=== PATIENT | female | born 1950 | race Caucasian/White ===

== ENCOUNTER 2016-10-26 07:04 | Emergency (ER) | payer MEDICARE ==
[~2016-10-26] VITALS: Ht 152.4 cm; Wt 56.8 kg
[~2016-10-26 07:04] MED LIST: ASPIR-LOW81 MG PO; LISINOPRIL/HCTZ1 TA1 PO; NITROSTAT0.4 MG SL; NORVASC2.5 MG PO
[2016-10-26 07:05] VITALS: PULSE 77; TEMP 97.8
[2016-10-26] MEDS ORDERED: ASPIRIN E.C. 8181 MG PO (07:24)
[2016-10-26] MEDS ORDERED: AVAPRO75 MG PO (07:24)
[2016-10-26 08:55] VITALS: BP 252/120
[2016-10-26] MEDS ORDERED: ATIVAN 0.50.5 MG/TAB PO (08:56)
== END 2016-10-26 09:30 | disposition home or self-care (01) ==
LOC: COL.ER 07:04
DX: I16.1 Hypertensive emergency (principal); S46.811A Strain of other muscles, fascia and tendons at shoulder and upper arm level, right arm, initial encounter; W19.XXXA Unspecified fall, initial encounter; Y92.007 Garden or yard of unspecified non-institutional (private) residence as the place of occurrence of the external cause; Z53.21 Procedure and treatment not carried out due to patient leaving prior to being seen by health care provider; F41.9 Anxiety disorder, unspecified; Z86.73 Personal history of transient ischemic attack (TIA), and cerebral infarction without residual deficits; T46.5X6A Underdosing of other antihypertensive drugs, initial encounter; Z91.128 Patient's intentional underdosing of medication regimen for other reason

== ENCOUNTER 2016-11-06 16:28 | Inpatient (IN) | payer MEDICARE, OTHER ==
[2016-11-06] VITALS (291 sets, daily range): BP systolic 170; BP diastolic 94; PULSE 62; TEMP 98.1; O2SAT 90–100
[~2016-11-06] VITALS: Ht 152.4 cm; Wt 56.2 kg
[~2016-11-06 16:28] MED LIST changes: +ASPIRIN E.C. 8181 MG PO; +ATIVAN 0.50.5 MG/TAB PO; +AVAPRO75 MG PO
[2016-11-06] MEDS ORDERED: ISOPTIN SR240 MG PO (16:53)
[2016-11-06 17:11] LABS: BASO # 0.1 (0.0-0.2); BASO % 0.5 % (0.0-2.0); EOS # 0.4 (0.0-0.7); EOS % 3.2 % (0-4.0); GRAN # 7.7 (1.4-6.5); GRAN % 69.3 % (42.2-75.2); HEMOGLOBIN 12.2 g/dl (12.5-16.0); LYMPH # 2.4 (1.2-3.4); LYMPH % 21.3 % (20.0-51.0); MEAN CELL VOLUME 83 fl (80.0-100.0); MEAN CORPUSCULAR HEMOGLOBIN 28 pg (27.0-31.0); MEAN CORPUSCULAR HGB CONC 34 g/dl (33.0-37.0); MEAN PLATELET VOLUME 10.3 fl (7.4-10.4); MONO # 0.6 (0.1-0.6); MONO % 5.3 % (1.7-9.3); PLATELET COUNT 286 K/mm3 (130-400); RED BLOOD COUNT 4.32 M/mm3 (4.10-5.30); WHITE BLOOD COUNT 11.1 K/mm3 (4.8-10.8)
[2016-11-06 17:23] LABS: ALANINE AMINOTRANSFERASE 15 U/L (9-52); ALBUMIN 4.3 gm/dL (3.5-5.0); ALKALINE PHOSPHATASE 100 U/L (50-136); ANION GAP 13 mmol/L (7-16); BILIRUBIN,TOTAL 0.8 mg/dL (0.0-1.0); BLOOD UREA NITROGEN 40 mg/dL (7-17); C-REACTIVE PROTEIN 0.7 mg/dL (0.0-0.9); CALCIUM 9.2 mg/dL (8.4-10.2); CARBON DIOXIDE 23 mmol/L (22-30); CHLORIDE 105 mmol/L (98-107); CREATININE, serum 3.36 mg/dL (0.52-1.25); GLUCOSE 81 mg/dL (74-106); SODIUM 140 mmol/L (137-145); TOTAL PROTEIN 8.3 gm/dL (6.4-8.2)
[2016-11-06 17:32] LABS: TROPONIN-I < 0.012 ng/mL (0.000-0.034)
[2016-11-06 17:43] LABS: ERYTHROCYTE SEDIMENTATION RATE 55 mm/hr (0-30); HEMATOCRIT 35.7 % (37.0-47.0)
[2016-11-07] VITALS (936 sets, daily range): BP systolic 121–214; BP diastolic 65–109; PULSE 48–66; TEMP 97.1–99.1; O2SAT 83–100
[2016-11-07 02:28] LABS: COLLECTION METHOD CLEAN CATCH
[2016-11-07 02:33] LABS: PH 7 (5-8); SQUAMOUS EPITHELIAL 0-2 /hpf; URINE APPEARANCE Clear; URINE BACTERIA Rare /hpf; URINE BILIRUBIN Negative (NEGATIVE); URINE BLOOD Negative (NEGATIVE); URINE COLOR Colorless; URINE GLUCOSE Negative (NEGATIVE); URINE KETONE Negative (NEGATIVE); URINE LEUKOCYTE ESTERASE Negative (NEGATIVE); URINE PROTEIN(semi-quant) 1+ (NEGATIVE); URINE RBC None Seen /hpf; URINE UROBILINOGEN Negative (NEGATIVE); URINE WBC 0-2 /hpf
[2016-11-07 16:07] LABS: URINE PROTEIN:CREAT RATIO 1.37 (0.00-0.14)
[2016-11-07 17:46] LABS: CREATININE, serum 2.49 mg/dL (0.52-1.25); FRACTIONAL EXCRETION OF NA+ 2.4 %
[2016-11-08] VITALS (11 sets, daily range): BP systolic 143–189; BP diastolic 72–97; PULSE 54–84; TEMP 97.4–98.7
[2016-11-08 09:21] LABS: CALCIUM 8.6 mg/dL (8.4-10.2); CREATININE, serum 2.34 mg/dL (0.52-1.25); MAGNESIUM 2.1 mg/dL (1.6-2.3); POTASSIUM 4.1 mmol/L (3.4-5.0)
[2016-11-08 14:10] LABS: ALBUMIN FRACTION 3.1 g/dL (2.6-4.5); ALPHA 1 FRACTION 0.3 g/dL (0.3-0.5); ALPHA 1 PERCENTAGE 4.4 % (3.4-8.3); ALPHA 2 FRACTION 0.7 g/dL (0.6-1.2); ALPHA 2 PERCENTAGE 11.4 % (8.4-17.5); BETA 1 FRACTION 0.4 g/dL (0.4-0.6); BETA 1 PERCENTAGE 5.9 % (5.4-8.9); BETA 2 FRACTION 0.4 g/dL (0.2-0.5); BETA 2 PERCENTAGE 6.8 % (3.8-7.7); GAMMA FRACTION 1.3 g/dL (0.4-1.7); GAMMA PERCENTAGE 21.5 % (8.1-23.0); SERUM PROTEIN TOTAL 6.2 g/dL (6.0-7.6); URINE ALPHA 1 % 8.2 % (()); URINE ALPHA 2 % 6.3 % (()); URINE BETA % 8.4 % (()); URINE GAMMA % 15.8 % (())
[2016-11-09 00:25] VITALS: BP 139/74; PULSE 55
[2016-11-09 04:10] VITALS: BP 155/60; PULSE 76; TEMP 97.7
[2016-11-09 07:49] VITALS: BP 168/87; PULSE 63; TEMP 98
[2016-11-09 11:49] LABS: KAPPA FREE LIGHT CHAIN-SERUM 14.2 mg/dL (()); KAPPA LAMBDA RATIO 3.44 (())
[2016-11-09 12:44] VITALS: BP 163/71; PULSE 60; TEMP 97.4
[2016-11-09] MEDS ORDERED: ISOPTIN SR180 M1 PO (13:56)
[2016-11-09] MEDS ORDERED: AVAPRO75 MG PO (13:57)
[2016-11-09] MEDS ORDERED: CATAPRES0.2 MG PO (13:58)
[2016-11-09] MEDS ORDERED: COREG 6.256.25 MG/TA PO (14:00)
[2017-02-02] MEDS ORDERED: ASPIRIN 81M81 MG/TA2 PO (17:51)
[2017-02-02] MEDS ORDERED: ULTRAM 50MG TAB50 MG PO (17:54)
== END 2016-11-09 15:20 | disposition home or self-care (01) | DRG 305 ==
LOC: COL.ER 16:28 → ICU 17:54 → MEDICAL 11-07 16:50
PROVIDERS: Emergency Medicine; Family Medicine; Internal Medicine; Internal Medicine Nephrology
DX: I16.0 Hypertensive urgency (principal); N18.4 Chronic kidney disease, stage 4 (severe); N17.9 Acute kidney failure, unspecified; I71.4 Abdominal aortic aneurysm, without rupture; I12.9 Hypertensive chronic kidney disease with stage 1 through stage 4 chronic kidney disease, or unspecified chronic kidney disease; Z91.14 Patient's other noncompliance with medication regimen
CPT/HCPCS: 99223-AI; 99233-AI; J1200; J1644; J7030; J7050

== ENCOUNTER 2017-02-06 15:19 | Inpatient (IN) | payer MEDICARE ==
[~2017-02-06] VITALS: Ht 152.4 cm; Wt 54.8 kg
[~2017-02-06 15:19] MED LIST changes: +ASPIRIN 81M81 MG/TA2 PO; +CATAPRES0.2 MG PO; +COREG 6.256.25 MG/TA PO; +ISOPTIN SR180 M1 PO; +ISOPTIN SR240 MG PO; +ULTRAM 50MG TAB50 MG PO
[2017-02-06 18:42] VITALS: BP 165/74; PULSE 50; TEMP 97.3
[2017-02-07] MEDS ORDERED: COREG 25MG25 MG/TAB PO (02:38)
[2017-02-07] MEDS ORDERED: ALDACTONE 25MG25 M1 PO (02:39)
[2017-02-07] MEDS ORDERED: HEPARIN SOD5000 U/ML SQ (02:45)
[2017-02-07] MEDS ORDERED: HCTZ 25MG TAB25 MG (02:46)
[2017-02-07] MEDS ORDERED: HCTZ 25MG TAB25 MG PO (02:47)
[2017-02-07] MEDS ORDERED: MAG-OX 400400 MG/TAB PO (02:49)
[2017-02-07] MEDS ORDERED: NORVASC 5MG5 MG/TAB PO (02:52)
[2017-02-07] MEDS ORDERED: HEPARIN LOCK F1 U/ML IV (02:54)
[2017-02-07] MEDS ORDERED: PROTONIX 40MG T40 MG PO (02:55)
[2017-02-07] MEDS ORDERED: APRESOLINE 220 MG/ML IV (02:58)
[2017-02-07] MEDS ORDERED: MORP4 IV (03:13)
[2017-02-07 06:51] VITALS: BP 180/76; PULSE 58; TEMP 98.4
[2017-02-07 16:10] VITALS: BP 139/70; PULSE 52; TEMP 97.7
[2017-02-08 05:16] VITALS: BP 158/74; PULSE 48; TEMP 97.5
[2017-02-08 05:44] LABS: CALCIUM 9.2 mg/dL (8.4-10.2); CREATININE, serum 3.62 mg/dL (0.52-1.25); POTASSIUM 4.7 mmol/L (3.4-5.0)
[2017-02-08 16:59] VITALS: BP 137/63; PULSE 50; TEMP 98.2
[2017-02-09 06:01] VITALS: BP 174/75; PULSE 52; TEMP 98.2
[2017-02-09 07:10] LABS: CALCIUM 9.4 mg/dL (8.4-10.2); CREATININE, serum 3.81 mg/dL (0.52-1.25); POTASSIUM 4.4 mmol/L (3.4-5.0)
[2017-02-09 16:51] VITALS: BP 149/83; PULSE 60; TEMP 98.3
[2017-02-10 05:30] VITALS: BP 174/78; PULSE 56; TEMP 98.6
[2017-02-10 07:09] LABS: CALCIUM 9.5 mg/dL (8.4-10.2); CREATININE, serum 3.67 mg/dL (0.52-1.25); MAGNESIUM 2.7 mg/dL (1.6-2.3); POTASSIUM 4.7 mmol/L (3.4-5.0)
[2017-02-10 16:05] VITALS: BP 156/80; PULSE 64; TEMP 98.3
[2017-02-11 05:18] VITALS: BP 135/68; PULSE 71; TEMP 97.6
[2017-02-11 11:27] VITALS: BP 168/92
[2017-02-11 16:16] VITALS: BP 160/81; PULSE 72; TEMP 98
[2017-02-12 03:12] VITALS: BP 134/78; PULSE 86; TEMP 98.4
[2017-02-12 07:40] LABS: CALCIUM 9.5 mg/dL (8.4-10.2); MAGNESIUM 2.6 mg/dL (1.6-2.3); POTASSIUM 4.4 mmol/L (3.4-5.0)
[2017-02-12 07:42] LABS: CREATININE, serum 3.94 mg/dL (0.52-1.25)
[2017-02-12 12:08] VITALS: BP 136/75; PULSE 81
[2017-02-12 17:12] VITALS: BP 164/76; PULSE 82; TEMP 97.6
[2017-02-13 05:22] VITALS: BP 170/81; PULSE 74; TEMP 98.3
[2017-02-13 17:00] VITALS: BP 154/79; PULSE 90; TEMP 98.1
[2017-02-14 04:49] VITALS: BP 131/64; PULSE 73; TEMP 97.7
[2017-02-14] MEDS ORDERED: MINOXIDIL 2.5 PO (11:29)
[2017-02-14] MEDS ORDERED: ZESTRIL 5MG5 MG PO (11:29)
[2017-02-14] MEDS ORDERED: APRESOLINE 10MG10 MG PO (11:30)
[2017-02-14] MEDS ORDERED: TYLENOL 325MG325 MG PO (11:31)
[2017-02-14 18:53] VITALS: BP 154/74; PULSE 82; TEMP 98.3
== END 2017-02-14 20:30 | disposition home or self-care (01) | DRG 948 ==
PROVIDERS: Internal Medicine
DX: R53.81 Other malaise (principal); N18.4 Chronic kidney disease, stage 4 (severe); N17.9 Acute kidney failure, unspecified; I16.0 Hypertensive urgency; I12.9 Hypertensive chronic kidney disease with stage 1 through stage 4 chronic kidney disease, or unspecified chronic kidney disease; E87.6 Hypokalemia; Z87.891 Personal history of nicotine dependence; S83.206D Unspecified tear of unspecified meniscus, current injury, right knee, subsequent encounter
CPT/HCPCS: 99222-AI; 99232-AI; 99233-AI; 99239; J1644; J2405

== ENCOUNTER 2018-03-07 18:39 | Inpatient (IN) | payer MEDICARE ==
[~2018-03-07] VITALS: Ht 152.4 cm; Wt 49.1 kg
[2018-03-07] VITALS (71 sets, daily range): BP systolic 139–201; BP diastolic 77–100; PULSE 72–78; TEMP 98.4; O2SAT 91–100
[~2018-03-07 18:39] MED LIST changes: +ALDACTONE 25MG25 M1 PO; +APRESOLINE 10MG10 MG PO; +APRESOLINE 220 MG/ML IV; +COREG 25MG25 MG/TAB PO; +HCTZ 25MG TAB25 MG; +HCTZ 25MG TAB25 MG PO; +HEPARIN LOCK F1 U/ML IV; +HEPARIN SOD5000 U/ML SQ; +MAG-OX 400400 MG/TAB PO; +MINOXIDIL 2.5 PO; +MORP4 IV; +NORVASC 5MG5 MG/TAB PO; +PROTONIX 40MG T40 MG PO; +TYLENOL 325MG325 MG PO; +ZESTRIL 5MG5 MG PO
[2018-03-07 23:33] LABS: COLLECTION METHOD CLEAN CATCH
[2018-03-07 23:37] LABS: PH 6 (5-8); SQUAMOUS EPITHELIAL None Seen /hpf; URINE APPEARANCE Clear; URINE BACTERIA None Seen /hpf; URINE BILIRUBIN Negative (NEGATIVE); URINE BLOOD Negative (NEGATIVE); URINE COLOR Yellow; URINE GLUCOSE Negative (NEGATIVE); URINE KETONE Negative (NEGATIVE); URINE LEUKOCYTE ESTERASE Negative (NEGATIVE); URINE NITRATE Negative (NEGATIVE); URINE PROTEIN(semi-quant) 3+ (NEGATIVE); URINE RBC 0-2 /hpf; URINE UROBILINOGEN Negative (NEGATIVE)
[2018-03-08] VITALS (690 sets, daily range): BP systolic 156–218; BP diastolic 91–129; PULSE 60–86; TEMP 97.6–98.2; O2SAT 89–100
[2018-03-08 01:14] LABS: TROPONIN-I < 0.012 ng/mL (0.000-0.034)
[2018-03-08 01:57] LABS: ANION GAP 7 mmol/L (7-16); BLOOD UREA NITROGEN 55 mg/dL (7-17); CALCIUM 8.6 mg/dL (8.4-10.2); CARBON DIOXIDE 22 mmol/L (22-30); CHLORIDE 116 mmol/L (98-107); GLUCOSE 92 mg/dL (74-106); MAGNESIUM 2.1 mg/dL (1.6-2.3); SODIUM 145 mmol/L (137-145)
[2018-03-08 06:02] LABS: BASO % 0.4 % (0.0-2.0); EOS # 0.3 (0.0-0.7); EOS % 3.8 % (0-4.0); GRAN # 5.3 (1.4-6.5); GRAN % 65.4 % (42.2-75.2); LYMPH # 1.9 (1.2-3.4); LYMPH % 23.9 % (20.0-51.0); MEAN CELL VOLUME 85 fl (80.0-100.0); MEAN CORPUSCULAR HGB CONC 33 g/dl (33.0-37.0); MEAN PLATELET VOLUME 10.7 fl (7.4-10.4); MONO # 0.5 (0.1-0.6); MONO % 6.1 % (1.7-9.3); PLATELET COUNT 197 K/mm3 (130-400); RED BLOOD COUNT 3.23 M/mm3 (4.10-5.30); REDCELL DISTRIBUTION WIDTH-CV 13.2 % (11.5-14.5)
[2018-03-08 06:10] LABS: HEMATOCRIT 27.5 % (37.0-47.0); HEMOGLOBIN 9.1 g/dl (12.5-16.0); MEAN CORPUSCULAR HEMOGLOBIN 28 pg (27.0-31.0)
[2018-03-08 06:11] LABS: ANION GAP 7 mmol/L (7-16); BLOOD UREA NITROGEN 53 mg/dL (7-17); CALCIUM 8.2 mg/dL (8.4-10.2); CARBON DIOXIDE 21 mmol/L (22-30); CHLORIDE 115 mmol/L (98-107); GLUCOSE 90 mg/dL (74-106); POTASSIUM 3.8 mmol/L (3.4-5.0); SODIUM 143 mmol/L (137-145)
[2018-03-08 06:28] LABS: TROPONIN-I < 0.012 ng/mL (0.000-0.034)
[2018-03-08 06:29] LABS: CREATININE, serum 4.48 mg/dL (0.52-1.25)
[2018-03-09] VITALS (573 sets, daily range): BP systolic 137–169; BP diastolic 78–97; PULSE 61–74; TEMP 97.8–98.5; O2SAT 73–100
[2018-03-09 05:53] LABS: BASO % 0.3 % (0.0-2.0); EOS # 0.5 (0.0-0.7); EOS % 4.1 % (0-4.0); GRAN # 9.1 (1.4-6.5); GRAN % 75.1 % (42.2-75.2); HEMOGLOBIN 10.1 g/dl (12.5-16.0); LYMPH # 1.7 (1.2-3.4); LYMPH % 14.1 % (20.0-51.0); MEAN CELL VOLUME 83 fl (80.0-100.0); MEAN CORPUSCULAR HEMOGLOBIN 29 pg (27.0-31.0); MEAN CORPUSCULAR HGB CONC 34 g/dl (33.0-37.0); MEAN PLATELET VOLUME 11.1 fl (7.4-10.4); MONO # 0.7 (0.1-0.6); MONO % 6.1 % (1.7-9.3); PLATELET COUNT 209 K/mm3 (130-400); RED BLOOD COUNT 3.55 M/mm3 (4.10-5.30)
[2018-03-09 05:54] LABS: HEMATOCRIT 29.5 % (37.0-47.0)
[2018-03-09 06:02] LABS: CALCIUM 8.5 mg/dL (8.4-10.2)
[2018-03-09 06:13] LABS: CREATININE, serum 4.73 mg/dL (0.52-1.25)
[2018-03-09 17:48] LABS: CREATININE, serum 4.73 mg/dL (0.52-1.25); URINE TOTAL VOLUME 1175 mL
[2018-03-09 18:04] LABS: URINE CREATININE CLEARANCE 12.6 mL/min (88-128)
[2018-03-10] VITALS (8 sets, daily range): BP systolic 146–190; BP diastolic 75–93; PULSE 54–69; TEMP 97.5–98.3
[2018-03-10 08:42] LABS: BASO % 0.3 % (0.0-2.0); EOS # 0.5 (0.0-0.7); EOS % 4.1 % (0-4.0); GRAN # 8.6 (1.4-6.5); GRAN % 76.8 % (42.2-75.2); HEMOGLOBIN 10.7 g/dl (12.5-16.0); LYMPH # 1.6 (1.2-3.4); LYMPH % 13.9 % (20.0-51.0); MEAN CELL VOLUME 84 fl (80.0-100.0); MEAN CORPUSCULAR HEMOGLOBIN 28 pg (27.0-31.0); MEAN CORPUSCULAR HGB CONC 34 g/dl (33.0-37.0); MEAN PLATELET VOLUME 11.1 fl (7.4-10.4); MONO # 0.5 (0.1-0.6); MONO % 4.5 % (1.7-9.3); PLATELET COUNT 219 K/mm3 (130-400); RED BLOOD COUNT 3.77 M/mm3 (4.10-5.30); REDCELL DISTRIBUTION WIDTH-CV 13.2 % (11.5-14.5)
[2018-03-10 08:47] LABS: HEMATOCRIT 31.6 % (37.0-47.0)
[2018-03-10 08:58] LABS: CALCIUM 8.8 mg/dL (8.4-10.2); POTASSIUM 3.8 mmol/L (3.4-5.0)
[2018-03-10 09:10] LABS: CREATININE, serum 4.63 mg/dL (0.52-1.25)
[2018-03-11 04:45] VITALS: BP 172/75; PULSE 58; TEMP 97.5
[2018-03-11 06:14] LABS: BASO % 0.4 % (0.0-2.0); EOS # 0.4 (0.0-0.7); EOS % 3.9 % (0-4.0); GRAN % 66.7 % (42.2-75.2); LYMPH # 1.9 (1.2-3.4); LYMPH % 21.6 % (20.0-51.0); MEAN CELL VOLUME 86 fl (80.0-100.0); MEAN CORPUSCULAR HGB CONC 33 g/dl (33.0-37.0); MEAN PLATELET VOLUME 11.4 fl (7.4-10.4); MONO # 0.6 (0.1-0.6); MONO % 7.1 % (1.7-9.3); PLATELET COUNT 218 K/mm3 (130-400); RED BLOOD COUNT 3.44 M/mm3 (4.10-5.30); REDCELL DISTRIBUTION WIDTH-CV 13.3 % (11.5-14.5)
[2018-03-11 06:17] LABS: HEMATOCRIT 29.4 % (37.0-47.0); HEMOGLOBIN 9.8 g/dl (12.5-16.0); MEAN CORPUSCULAR HEMOGLOBIN 28 pg (27.0-31.0)
[2018-03-11 06:28] LABS: CALCIUM 8.8 mg/dL (8.4-10.2); POTASSIUM 3.8 mmol/L (3.4-5.0)
[2018-03-11 06:58] LABS: CREATININE, serum 4.84 mg/dL (0.52-1.25)
[2018-03-11 07:34] VITALS: BP 204/91; PULSE 63; TEMP 97.6
[2018-03-11 10:10] VITALS: BP 155/64; PULSE 88; TEMP 98
[2018-03-11 11:32] VITALS: BP 151/77; PULSE 55; TEMP 97.9
[2018-03-11 16:36] VITALS: BP 183/75; PULSE 65; TEMP 98.3
[2018-03-11 16:53] LABS: KAPPA FREE LIGHT CHAIN-URINE 8.91 mg/dL (<0.9000); LAMBDA FREE LIGHT CHAIN-URINE 3.15 mg/dL (<0.7000)
[2018-03-11 21:05] VITALS: BP 162/89; PULSE 59; TEMP 97.5
[2018-03-11 21:42] LABS: KAPPA FREE LIGHT CHAIN-SERUM 14.7 mg/dL (()); LAMDA FREE LIGHT CHAIN SERUM 6.15 mg/dL (())
[2018-03-12 04:29] VITALS: BP 207/94; PULSE 62; TEMP 97.8
[2018-03-12 06:11] LABS: BASO % 0.4 % (0.0-2.0); EOS # 0.3 (0.0-0.7); EOS % 3.5 % (0-4.0); GRAN # 6.5 (1.4-6.5); GRAN % 71.7 % (42.2-75.2); HEMOGLOBIN 9.8 g/dl (12.5-16.0); LYMPH # 1.5 (1.2-3.4); LYMPH % 16.5 % (20.0-51.0); MEAN CELL VOLUME 86 fl (80.0-100.0); MEAN CORPUSCULAR HEMOGLOBIN 28 pg (27.0-31.0); MEAN CORPUSCULAR HGB CONC 33 g/dl (33.0-37.0); MEAN PLATELET VOLUME 11.4 fl (7.4-10.4); MONO # 0.7 (0.1-0.6); MONO % 7.6 % (1.7-9.3); PLATELET COUNT 220 K/mm3 (130-400); RED BLOOD COUNT 3.45 M/mm3 (4.10-5.30); REDCELL DISTRIBUTION WIDTH-CV 13.8 % (11.5-14.5)
[2018-03-12 06:12] LABS: HEMATOCRIT 29.7 % (37.0-47.0)
[2018-03-12 06:37] LABS: CALCIUM 8.7 mg/dL (8.4-10.2)
[2018-03-12 06:42] LABS: CREATININE, serum 5.9 mg/dL (0.52-1.25)
[2018-03-12 07:47] VITALS: BP 187/85; PULSE 63; TEMP 98.3
[2018-03-12 11:11] VITALS: BP 172/89; PULSE 32; TEMP 98.2
[2018-03-12 16:00] VITALS: BP 167/71; PULSE 61; TEMP 97.9
[2018-03-12 19:36] VITALS: BP 163/70; PULSE 58; TEMP 97
[2018-03-13] VITALS (13 sets, daily range): BP systolic 125–215; BP diastolic 51–95; PULSE 58–69; TEMP 97.4–98.2
[2018-03-13 06:10] LABS: BASO # 0.1 (0.0-0.2); BASO % 0.5 % (0.0-2.0); EOS # 0.3 (0.0-0.7); EOS % 3.3 % (0-4.0); GRAN # 7.3 (1.4-6.5); GRAN % 73.7 % (42.2-75.2); LYMPH # 1.6 (1.2-3.4); LYMPH % 15.8 % (20.0-51.0); MEAN CELL VOLUME 86 fl (80.0-100.0); MEAN CORPUSCULAR HGB CONC 33 g/dl (33.0-37.0); MEAN PLATELET VOLUME 11.1 fl (7.4-10.4); MONO # 0.6 (0.1-0.6); MONO % 6.5 % (1.7-9.3); PLATELET COUNT 238 K/mm3 (130-400); RED BLOOD COUNT 3.52 M/mm3 (4.10-5.30)
[2018-03-13 06:15] LABS: HEMATOCRIT 30.4 % (37.0-47.0); HEMOGLOBIN 9.9 g/dl (12.5-16.0); MEAN CORPUSCULAR HEMOGLOBIN 28 pg (27.0-31.0)
[2018-03-13 06:16] LABS: CALCIUM 8.6 mg/dL (8.4-10.2); POTASSIUM 3.9 mmol/L (3.4-5.0)
[2018-03-13 06:41] LABS: CREATININE, serum 5.45 mg/dL (0.52-1.25)
[2018-03-14] VITALS (8 sets, daily range): BP systolic 138–215; BP diastolic 63–93; PULSE 60–72; TEMP 97.8–98.4
[2018-03-14 07:53] LABS: BASO % 0.4 % (0.0-2.0); EOS # 0.2 (0.0-0.7); EOS % 1.5 % (0-4.0); GRAN # 8.5 (1.4-6.5); GRAN % 81.5 % (42.2-75.2); HEMOGLOBIN 10.3 g/dl (12.5-16.0); LYMPH # 1.1 (1.2-3.4); LYMPH % 10.6 % (20.0-51.0); MEAN CELL VOLUME 86 fl (80.0-100.0); MEAN CORPUSCULAR HEMOGLOBIN 29 pg (27.0-31.0); MEAN CORPUSCULAR HGB CONC 33 g/dl (33.0-37.0); MEAN PLATELET VOLUME 11.3 fl (7.4-10.4); MONO # 0.6 (0.1-0.6); MONO % 5.6 % (1.7-9.3); PLATELET COUNT 231 K/mm3 (130-400); RED BLOOD COUNT 3.62 M/mm3 (4.10-5.30)
[2018-03-14 07:58] LABS: HEMATOCRIT 31.2 % (37.0-47.0)
[2018-03-14 08:03] LABS: CALCIUM 8.9 mg/dL (8.4-10.2)
[2018-03-14 08:14] LABS: CREATININE, serum 5.68 mg/dL (0.52-1.25)
[2018-03-15] VITALS (7 sets, daily range): BP systolic 174–214; BP diastolic 66–85; PULSE 62–75; TEMP 97.9–98.3
[2018-03-15 06:25] LABS: BASO # 0.1 (0.0-0.2); BASO % 0.5 % (0.0-2.0); EOS # 0.1 (0.0-0.7); GRAN # 8.4 (1.4-6.5); GRAN % 80.9 % (42.2-75.2); LYMPH # 1.2 (1.2-3.4); LYMPH % 11.7 % (20.0-51.0); MEAN CELL VOLUME 87 fl (80.0-100.0); MEAN CORPUSCULAR HEMOGLOBIN 28 pg (27.0-31.0); MEAN CORPUSCULAR HGB CONC 33 g/dl (33.0-37.0); MEAN PLATELET VOLUME 11.8 fl (7.4-10.4); MONO # 0.6 (0.1-0.6); MONO % 5.6 % (1.7-9.3); PLATELET COUNT 216 K/mm3 (130-400); RED BLOOD COUNT 3.55 M/mm3 (4.10-5.30); REDCELL DISTRIBUTION WIDTH-CV 14.1 % (11.5-14.5)
[2018-03-15 06:28] LABS: HEMATOCRIT 30.7 % (37.0-47.0)
[2018-03-15 06:38] LABS: CALCIUM 8.8 mg/dL (8.4-10.2); MAGNESIUM 2.3 mg/dL (1.6-2.3); POTASSIUM 4.1 mmol/L (3.4-5.0)
[2018-03-15 06:39] LABS: CREATININE, serum 5.37 mg/dL (0.52-1.25)
[2018-03-15 16:30] LABS: HEPATITIS B CORE AB,TOTAL Negative (()); HEPATITIS B SURFACE ANTIBODY 106.9 (()); HEPATITIS B SURFACE ANTIGEN Negative (Negative); HEPATITIS C VIRUS ANTIBODY Negative (Negative)
[2018-03-16] VITALS (16 sets, daily range): BP systolic 114–209; BP diastolic 72–113; PULSE 68–121; TEMP 97.2–98.6
[2018-03-16 09:26] LABS: CALCIUM 8.8 mg/dL (8.4-10.2); POTASSIUM 4.1 mmol/L (3.4-5.0)
[2018-03-16 09:36] LABS: CREATININE, serum 4.39 mg/dL (0.52-1.25)
[2018-03-16] MEDS ORDERED: FLAGYL500 MG PO (12:06)
[2018-03-16] MEDS ORDERED: CIPRO 500MG TA500 MG PO (12:06)
[2018-03-16] MEDS ORDERED: COREG12.5 MG PO (12:07)
[2018-03-16] MEDS ORDERED: APRESOLINE50 MG PO (12:08)
[2018-03-16] MEDS ORDERED: PRINIVIL10 MG PO (14:54)
== END 2018-03-16 16:30 | disposition home health service (06) | DRG 286 ==
LOC: IMCU 18:39 → ICU 20:33 → MEDICAL 03-09 17:18
PROVIDERS: Hospitalist; Internal Medicine; Internal Medicine Nephrology; Nurse Practitioner Family; Physician Assistant
PROC: 0JHD3XZ Insertion of Tunneled Vascular Access Device into Right Upper Arm Subcutaneous Tissue and Fascia, Percutaneous Approach (ICD-10-PCS; principal; 2018-03-13)
PROC: B2141ZZ Fluoroscopy of Right Heart using Low Osmolar Contrast (ICD-10-PCS; 2018-03-13)
PROC: 02H633Z Insertion of Infusion Device into Right Atrium, Percutaneous Approach (ICD-10-PCS; 2018-03-13)
PROC: 5A1D70Z Performance of Urinary Filtration, Intermittent, Less than 6 Hours Per Day (ICD-10-PCS; 2018-03-15)
PROC: 5A1D70Z Performance of Urinary Filtration, Intermittent, Less than 6 Hours Per Day (ICD-10-PCS; 2018-03-16)
DX: I16.1 Hypertensive emergency (principal); N18.6 End stage renal disease; N17.9 Acute kidney failure, unspecified; K57.32 Diverticulitis of large intestine without perforation or abscess without bleeding; I12.0 Hypertensive chronic kidney disease with stage 5 chronic kidney disease or end stage renal disease; D63.1 Anemia in chronic kidney disease; I69.198 Other sequelae of nontraumatic intracerebral hemorrhage; Z91.14 Patient's other noncompliance with medication regimen; M54.5 Low back pain; G89.29 Other chronic pain; Z87.891 Personal history of nicotine dependence
CPT/HCPCS: 99232-AI; 99233-AI; 99239; J0744; J1200; J1644; J2250; J2405; J2916; J3010; J7030; J7050

== ENCOUNTER 2018-03-21 14:05 | Emergency (ER) | payer MEDICARE ==
[~2018-03-21] VITALS: Ht 152.4 cm; Wt 52.1 kg
[~2018-03-21 14:05] MED LIST changes: +APRESOLINE50 MG PO; +CIPRO 500MG TA500 MG PO; +COREG12.5 MG PO; +FLAGYL500 MG PO; +PRINIVIL10 MG PO
[2018-03-21 14:09] VITALS: BP 163/73; TEMP 97.8
[2018-03-21 14:48] LABS: BASO # 0.1 (0.0-0.2); BASO % 0.5 % (0.0-2.0); EOS # 0.3 (0.0-0.7); EOS % 3.1 % (0-4.0); GRAN # 7.5 (1.4-6.5); HEMOGLOBIN 9.5 g/dl (12.5-16.0); LYMPH # 2.2 (1.2-3.4); LYMPH % 19.9 % (20.0-51.0); MEAN CELL VOLUME 86 fl (80.0-100.0); MEAN CORPUSCULAR HEMOGLOBIN 29 pg (27.0-31.0); MEAN CORPUSCULAR HGB CONC 34 g/dl (33.0-37.0); MEAN PLATELET VOLUME 11.3 fl (7.4-10.4); MONO # 0.8 (0.1-0.6); MONO % 7.2 % (1.7-9.3); PLATELET COUNT 154 K/mm3 (130-400); RED BLOOD COUNT 3.26 M/mm3 (4.10-5.30); REDCELL DISTRIBUTION WIDTH-CV 13.5 % (11.5-14.5)
[2018-03-21 14:49] LABS: HEMATOCRIT 28.1 % (37.0-47.0)
[2018-03-21 15:45] VITALS: PULSE 61
== END 2018-03-21 15:45 | disposition home or self-care (01) ==
LOC: COL.ER 14:05
PROVIDERS: Emergency Medicine
DX: T85.71XA Infection and inflammatory reaction due to peritoneal dialysis catheter, initial encounter (principal); N18.6 End stage renal disease; Z99.2 Dependence on renal dialysis; Z79.82 Long term (current) use of aspirin; Z98.890 Other specified postprocedural states

== ENCOUNTER 2018-03-23 10:10 | Outpatient (CLI) | payer MEDICARE | END 2018-03-23 13:03 | disposition home or self-care (01) | LOC: EUO 10:10 | DX: T80.212A Local infection due to central venous catheter, initial encounter (principal); B99.9 Unspecified infectious disease; Z45.2 Encounter for adjustment and management of vascular access device; Z95.828 Presence of other vascular implants and grafts; Z99.2 Dependence on renal dialysis ==

== ENCOUNTER 2018-05-15 16:02 | Emergency (ER) | payer MEDICARE ==
[~2018-05-15] VITALS: Ht 152.4 cm; Wt 50.3 kg
[2018-05-15 16:03] VITALS: TEMP 98.5
[2018-05-15 16:43] LABS: BASO # 0.1 (0.0-0.2); BASO % 0.5 % (0.0-2.0); EOS # 0.4 (0.0-0.7); EOS % 3.6 % (0-4.0); GRAN # 7.4 (1.4-6.5); GRAN % 76.7 % (42.2-75.2); HEMATOCRIT 39.9 % (37.0-47.0); HEMOGLOBIN 12.9 g/dl (12.5-16.0); LYMPH # 1.2 (1.2-3.4); LYMPH % 12.5 % (20.0-51.0); MEAN CELL VOLUME 89 fl (80.0-100.0); MEAN CORPUSCULAR HEMOGLOBIN 29 pg (27.0-31.0); MEAN CORPUSCULAR HGB CONC 32 g/dl (33.0-37.0); MEAN PLATELET VOLUME 10.9 fl (7.4-10.4); MONO # 0.6 (0.1-0.6); MONO % 6.5 % (1.7-9.3); PLATELET COUNT 182 K/mm3 (130-400); RED BLOOD COUNT 4.51 M/mm3 (4.10-5.30); REDCELL DISTRIBUTION WIDTH-CV 13.9 % (11.5-14.5)
[2018-05-15 16:55] LABS: ALANINE AMINOTRANSFERASE 38 U/L (9-52); ALBUMIN 4.2 gm/dL (3.5-5.0); ALKALINE PHOSPHATASE 81 U/L (50-136); ANION GAP 10 mmol/L (7-16); AST,SGOT 50 U/L (15-37); BILIRUBIN,TOTAL 1.3 mg/dL (0.0-1.0); BLOOD UREA NITROGEN 30 mg/dL (7-17); C-REACTIVE PROTEIN 0.6 mg/dL (0.0-0.9); CALCIUM 9.5 mg/dL (8.4-10.2); CARBON DIOXIDE 25 mmol/L (22-30); CHLORIDE 106 mmol/L (98-107); GLUCOSE 88 mg/dL (74-106); POTASSIUM 4.1 mmol/L (3.4-5.0); SODIUM 142 mmol/L (137-145); TOTAL PROTEIN 7.8 gm/dL (6.4-8.2)
[2018-05-15 17:04] LABS: TROPONIN-I < 0.012 ng/mL (0.000-0.034)
[2018-05-15 17:05] LABS: CREATININE, serum 4.16 mg/dL (0.52-1.25)
[2018-05-15 17:59] LABS: INR 1.1 (0.8-3.0); PROTHROMBIN TIME 12.6 SECONDS (9.7-12.8)
[2018-05-15 18:02] LABS: PARTIAL THROMBOPLASTIN TIME 35.6 SECONDS (26.0-37.0)
[2018-05-15 18:30] VITALS: BP 214/111; PULSE 65
== END 2018-05-15 18:30 | disposition short-term general hospital (02) ==
LOC: COL.ER 16:02
PROVIDERS: Emergency Medicine
DX: I60.9 Nontraumatic subarachnoid hemorrhage, unspecified (principal); I12.0 Hypertensive chronic kidney disease with stage 5 chronic kidney disease or end stage renal disease; N18.6 End stage renal disease; Z86.73 Personal history of transient ischemic attack (TIA), and cerebral infarction without residual deficits
CPT/HCPCS: J1953; J7050

== ENCOUNTER → 2018-06-30 | Outpatient (CLI) | payer MEDICARE | LOC: COL.VAS 10:10 | DX: Z01.818 Encounter for other preprocedural examination (principal); N18.6 End stage renal disease; Z99.2 Dependence on renal dialysis ==

== ENCOUNTER 2018-10-10 15:54 | Observation (INO) | payer MEDICARE ==
[~2018-10-10] VITALS: Ht 152.4 cm; Wt 51.9 kg
[~2018-10-10 15:54] MED LIST changes: +CATAPRES 0.1MG0.1 MG PO; +COZAAR100 MG PO; +NORCO 325 MG-51 TAB PO; +NORVASC 10MG10 MG PO
[2018-10-10 16:25] LABS: BASO % 0.4 % (0.0-2.0); EOS # 0.3 (0.0-0.7); EOS % 2.8 % (0-4.0); HEMATOCRIT 34.9 % (37.0-47.0); HEMOGLOBIN 12.1 g/dl (12.5-16.0); LYMPH # 2.7 (1.2-3.4); LYMPH % 27.8 % (20.0-51.0); MEAN CELL VOLUME 87 fl (80.0-100.0); MEAN CORPUSCULAR HEMOGLOBIN 30 pg (27.0-31.0); MEAN CORPUSCULAR HGB CONC 35 g/dl (33.0-37.0); MEAN PLATELET VOLUME 9.4 fl (7.4-10.4); MONO # 0.8 (0.1-0.6); MONO % 7.7 % (1.7-9.3); PLATELET COUNT 248 K/mm3 (130-400); REDCELL DISTRIBUTION WIDTH-CV 13.3 % (11.5-14.5)
[2018-10-10 16:35] LABS: ALANINE AMINOTRANSFERASE < 6 U/L (9-52); ALBUMIN 4.4 gm/dL (3.5-5.0); ALKALINE PHOSPHATASE 92 U/L (50-136); ANION GAP 16 mmol/L (7-16); AST,SGOT 22 U/L (15-37); BILIRUBIN,TOTAL 1.2 mg/dL (0.0-1.0); BLOOD UREA NITROGEN 38 mg/dL (7-17); C-REACTIVE PROTEIN 0.7 mg/dL (0.0-0.9); CALCIUM 10.4 mg/dL (8.4-10.2); CARBON DIOXIDE 25 mmol/L (22-30); CHLORIDE 98 mmol/L (98-107); GLUCOSE 88 mg/dL (74-106); POTASSIUM 3.6 mmol/L (3.4-5.0); SODIUM 139 mmol/L (137-145); TOTAL PROTEIN 8.3 gm/dL (6.4-8.2)
[2018-10-10 16:37] LABS: CREATININE, serum 6.51 (0.52-1.25)
[2018-10-10 18:13] LABS: COLLECTION METHOD CLEAN CATCH
[2018-10-10 18:25] LABS: PH 9 (5-8); SQUAMOUS EPITHELIAL None Seen /hpf; URINE APPEARANCE Clear; URINE BACTERIA None Seen /hpf; URINE BILIRUBIN Negative (NEGATIVE); URINE BLOOD Negative (NEGATIVE); URINE COLOR Straw; URINE GLUCOSE 1+ (NEGATIVE); URINE KETONE Negative (NEGATIVE); URINE LEUKOCYTE ESTERASE Negative (NEGATIVE); URINE NITRATE Negative (NEGATIVE); URINE PROTEIN(semi-quant) 2+ (NEGATIVE); URINE RBC 0-2 /hpf; URINE UROBILINOGEN Negative (NEGATIVE)
[2018-10-10 18:34] LABS: TRICYCLIC ANTIDEPRESS URINE NEGATIVE
[2018-10-10 20:37] VITALS: BP 178/70; BP 179/82; PULSE 87; TEMP 99.8
--- NOTE | 2018-10-10 20:55 | NUR ---
PT ADMITTED TO FLOOR. PT WAS ASSISTED TO BED AT THIS TIME. PT IS A LITTLE SLOW TO RESPOND AND SOMETIMES CANT THINK OF WHAT SHE IS TRYING TO SAY, BUT IS ABLE TO MAKE NEEDS KNOWN. PT HAS NO C/O PAIN AT THIS TIME BUT STATES SHE HAS CHRONIC BACK PAIN. NO ISSUES OR CONSERNS VOICED AT THIS TIME.
[2018-10-10] MEDS ORDERED: TUMS500 MG CHEW (21:41)
[2018-10-10 23:32] VITALS: BP 134/90; PULSE 73; TEMP 98.5
[2018-10-11 03:34] VITALS: BP 141/72; PULSE 70; TEMP 98.6
--- NOTE | 2018-10-11 04:34 | NUR ---
PT HAD UNEVENTFUL NOC. APPEARED TO HAVE SLEPT WELL. NO ISSUES OR CONSERNS VOICED. NO CHANGES IN MENTATION THIS NOC. NEUROS REMAIN UNREMARKABLE. GLUCOSE LEVELS REMAINS WNL THIS NOC.
[2018-10-11 06:57] LABS: BASO # 0.1 (0.0-0.2); BASO % 0.6 % (0.0-2.0); EOS # 0.3 (0.0-0.7); EOS % 3.2 % (0-4.0); GRAN % 59.7 % (42.2-75.2); HEMOGLOBIN 10.7 g/dl (12.5-16.0); LYMPH # 2.5 (1.2-3.4); LYMPH % 29.7 % (20.0-51.0); MEAN CELL VOLUME 91 fl (80.0-100.0); MEAN CORPUSCULAR HEMOGLOBIN 31 pg (27.0-31.0); MEAN CORPUSCULAR HGB CONC 34 g/dl (33.0-37.0); MEAN PLATELET VOLUME 9.8 fl (7.4-10.4); MONO # 0.5 (0.1-0.6); MONO % 6.4 % (1.7-9.3); PLATELET COUNT 201 K/mm3 (130-400); REDCELL DISTRIBUTION WIDTH-CV 13.5 % (11.5-14.5)
[2018-10-11 07:03] LABS: HEMATOCRIT 31.7 % (37.0-47.0)
[2018-10-11 07:05] LABS: CALCIUM 9.2 mg/dL (8.4-10.2)
[2018-10-11 07:06] LABS: CREATININE, serum 7.72 (0.52-1.25)
[2018-10-11 07:20] VITALS: BP 166/76; PULSE 69; TEMP 97.7
--- NOTE | 2018-10-11 07:40 | NUR ---
Pt assessment commplete. Pt laying in bed upon entry, she is A/O x3. Her breathing is even and unlabored on RA. Pt denies SOB. No pain at this time. Pt denies any N/V. Breakfast ordered for patient. Pt's speech is appropriate. No needs at this time. Call light within reach. Will continue to monitor.
[2018-10-11 12:05] VITALS: BP 132/61; PULSE 66; TEMP 98.3
--- NOTE | 2018-10-11 12:53 | NUR ---
Patient lives at home along in [place], [place] and plans to return home upon discharge if her recovery allows. Patient has two sons (Yosi and Kenny) who also live locally in [place], [place] and help support the patient as needed. Patient uses a cane for mobility assistance, her primary care physician is Thien Hummel, her pharmacy is [facility], and she does not have advance directives for healthcare on file at this time. No further needs at this time and sr. social media & mobile manager will follow as needed.
[2018-10-11 16:21] VITALS: BP 164/80; PULSE 74; TEMP 97.6
--- NOTE | 2018-10-11 17:57 | NUR ---
Discharge instructions reviewed with patient, all questions answered at this time. IV to LFA dc'd, catheter tip intact. Dressing to dialysis catheter off, replaced by this nurse. Pt awaiting ride at this time.
--- NOTE | 2018-10-11 18:30 | NUR ---
Pt wheeled down at this time.
== END 2018-10-11 18:30 | disposition home or self-care (01) ==
LOC: COL.ER 15:54 → MEDICAL 19:05 → EDBEDREQ 20:01 → MEDICAL 10-11 18:30
PROVIDERS: Family Medicine; Nurse Practitioner; ADMIT Internal Medicine
DX: R41.82 Altered mental status, unspecified (principal); Z86.73 Personal history of transient ischemic attack (TIA), and cerebral infarction without residual deficits; I12.0 Hypertensive chronic kidney disease with stage 5 chronic kidney disease or end stage renal disease; N18.6 End stage renal disease; Z99.2 Dependence on renal dialysis; Z91.040 Latex allergy status; Z88.8 Allergy status to other drugs, medicaments and biological substances; G89.29 Other chronic pain; M54.9 Dorsalgia, unspecified; F41.9 Anxiety disorder, unspecified; D63.1 Anemia in chronic kidney disease; R80.9 Proteinuria, unspecified; E16.2 Hypoglycemia, unspecified
CPT/HCPCS: G0378; J1644; J2060

== ENCOUNTER 2018-10-27 10:13 | Outpatient (CLI) | payer MEDICARE ==
[2018-10-27] VITALS (8 sets, daily range): BP systolic 141–174; BP diastolic 74–118; PULSE 67–81; TEMP 97.9
[~2018-10-27] VITALS: Ht 152.4 cm; Wt 50.1 kg
[~2018-10-27 10:13] MED LIST changes: +TUMS500 MG CHEW
--- NOTE | 2018-10-27 14:10 | NUR ---
report received from cee Friedman.
--- NOTE | 2018-10-27 14:19 | NUR ---
ALL MEDICATIONS GIVEN VORB WITH MD. SEE MERGE FOR ALL MEDICATION ADMIN TIMES. SEE MERGE FOR ALL RASS ASSESSMENTS DURING AND POST PROCEDURE.
--- NOTE | 2018-10-27 17:23 | NUR ---
Discharge instructions given to pt.Pt verbalizes understanding.INT removed,cathetr tip intact.
--- NOTE | 2018-10-27 17:38 | NUR ---
Pt escorted out via wheelchair by this nurse.
== END 2018-10-27 17:43 | disposition home or self-care (01) ==
LOC: COL.CAR 10:13
DX: T82.838A Hemorrhage due to vascular prosthetic devices, implants and grafts, initial encounter (principal); Z91.040 Latex allergy status; Z88.8 Allergy status to other drugs, medicaments and biological substances
CPT/HCPCS: J1644; J2250; J3010; Q9967

== ENCOUNTER 2019-02-06 23:13 | Inpatient (IN) | payer MEDICARE, OTHER ==
[~2019-02-06] VITALS: Ht 157.5 cm; Wt 49.1 kg
[2019-02-06 23:52] LABS: BASO % 0.4 % (0.0-2.0); EOS # 0.2 (0.0-0.7); EOS % 2.5 % (0-4.0); GRAN # 6.6 (1.4-6.5); GRAN % 73.6 % (42.2-75.2); LYMPH # 1.4 (1.2-3.4); LYMPH % 15.4 % (20.0-51.0); MEAN CELL VOLUME 90 fl (80.0-100.0); MEAN CORPUSCULAR HEMOGLOBIN 30 pg (27.0-31.0); MEAN CORPUSCULAR HGB CONC 34 g/dl (33.0-37.0); MEAN PLATELET VOLUME 10.2 fl (7.4-10.4); MONO # 0.7 (0.1-0.6); MONO % 7.8 % (1.7-9.3); PLATELET COUNT 242 K/mm3 (130-400); RED BLOOD COUNT 3.99 M/mm3 (4.10-5.30)
[2019-02-06 23:58] LABS: HEMATOCRIT 35.7 % (37.0-47.0)
[2019-02-07 00:01] LABS: ALANINE AMINOTRANSFERASE < 6 U/L (9-52); ALBUMIN 4.5 gm/dL (3.5-5.0); ALCOHOL(ethanol),MEDICAL < 10 mg/dL; ALKALINE PHOSPHATASE 67 U/L (50-136); ANION GAP 15 mmol/L (7-16); AST,SGOT 28 U/L (15-37); BILIRUBIN,TOTAL 0.8 mg/dL (0.0-1.0); BLOOD UREA NITROGEN 45 mg/dL (7-17); C-REACTIVE PROTEIN 0.5 mg/dL (0.0-0.9); CALCIUM 9.9 mg/dL (8.4-10.2); CARBON DIOXIDE 29 mmol/L (22-30); CHLORIDE 96 mmol/L (98-107); CREATININE, serum 8.03 (0.52-1.25); GLUCOSE 187 mg/dL (74-106); LIPASE 140 U/L (23-300); MAGNESIUM 2.3 mg/dL (1.6-2.3); PHOSPHOROUS 3.5 mg/dL (2.5-4.5); POTASSIUM 3.5 mmol/L (3.4-5.0); SODIUM 140 mmol/L (137-145); TOTAL PROTEIN 7.9 gm/dL (6.4-8.2)
[2019-02-07 00:28] LABS: COLLECTION METHOD CLEAN CATCH
[2019-02-07 00:34] LABS: PH 9 (5-8); SQUAMOUS EPITHELIAL 0-2 /hpf; URINE APPEARANCE Clear; URINE BACTERIA None Seen /hpf; URINE BILIRUBIN Negative (NEGATIVE); URINE BLOOD Negative (NEGATIVE); URINE COLOR Yellow; URINE GLUCOSE 2+ (NEGATIVE); URINE KETONE Negative (NEGATIVE); URINE LEUKOCYTE ESTERASE Trace (NEGATIVE); URINE NITRATE Negative (NEGATIVE); URINE PROTEIN(semi-quant) 1+ (NEGATIVE); URINE RBC 0-2 /hpf; URINE UROBILINOGEN Negative (NEGATIVE)
[2019-02-07 04:41] VITALS: BP 179/69; PULSE 63; TEMP 98.1
--- NOTE | 2019-02-07 05:00 | NUR ---
Admitted to medical floor from ER- observation, DX; AMS, RF,, pt is alert/oriented at this time, no confusion noted, Up to bathroom with standby assist- steady on feet, has fistula RUE- good thrill/bruit, has large bruising above fistula to shoulder.
[2019-02-07 07:35] VITALS: BP 203/67; PULSE 65; TEMP 97.5
[2019-02-07 11:49] VITALS: BP 154/68; PULSE 62
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
[2019-02-07 15:40] VITALS: BP 165/63; PULSE 57; TEMP 97.8
--- NOTE | 2019-02-07 18:05 | NUR ---
PT HAD UNEVENTFUL DAY. HAS SLEPT MOST OF SHIFT. HAD C/O LOOSE STOOLS THIS AM GAVE IMMODIUM, STATED IT HAD HELP AND HAD ABOUT 3-4 TOTAL ALL DAY BUT THEY DECREASED IN SIZE AND FREQUENCY THE DAY PROGRESSED. NO OTHER CONSERENS VOCIED.
[2019-02-07 19:26] VITALS: BP 169/67; PULSE 62; TEMP 98.7
[2019-02-07 23:32] VITALS: BP 122/72; PULSE 50; TEMP 98.9
--- NOTE | 2019-02-08 01:02 | NUR ---
RECIEVED MULTIPLE CALLS FROM TELEMETRY REGARING PT HR. CALLED DR. ALLEN AND RECEIVED ORDERS TO CHANGE A MEDICATION DOSAGE. WE DISCUSSED CHANGING THE TELEMETRY PARAMETERS HER HR IS IN THE LOW TO MID 40'S. HE STATED THAT HE WOULD NOT LIKE TO CHANGE THE PARAMETERS. INFORMED TELE OF THE DECISION.
--- NOTE | 2019-02-08 01:45 | NUR ---
PT HR IS PERSISTENT IN THE MID TO LOW 40'S WHILE SLEEPING. PT IS NOT SYMPTOMATIC. CONTACTED SUPERVISOR SPEECH CHRISTINA, SHE SAID SHE IS FINE WITH NOT CALLING BEDROS AGAIN PROVIDED PT REMAINS ASYMPTOMATIC. NO OTHER CONCERNS AT THIS TIME.
[2019-02-08 04:29] VITALS: BP 114/50; PULSE 49
[2019-02-08 06:10] LABS: BASO % 0.3 % (0.0-2.0); EOS # 0.5 (0.0-0.7); EOS % 4.7 % (0-4.0); GRAN # 5.9 (1.4-6.5); GRAN % 60.7 % (42.2-75.2); HEMOGLOBIN 10.6 g/dl (12.5-16.0); LYMPH # 2.7 (1.2-3.4); LYMPH % 27.9 % (20.0-51.0); MEAN CELL VOLUME 90 fl (80.0-100.0); MEAN CORPUSCULAR HEMOGLOBIN 31 pg (27.0-31.0); MEAN CORPUSCULAR HGB CONC 34 g/dl (33.0-37.0); MONO # 0.6 (0.1-0.6); MONO % 6.1 % (1.7-9.3); PLATELET COUNT 234 K/mm3 (130-400); RED BLOOD COUNT 3.48 M/mm3 (4.10-5.30); REDCELL DISTRIBUTION WIDTH-CV 13.1 % (11.5-14.5)
[2019-02-08 06:11] LABS: HEMATOCRIT 31.2 % (37.0-47.0)
[2019-02-08 06:24] LABS: ALBUMIN 3.7 gm/dL (3.5-5.0); PHOSPHOROUS 5.8 mg/dL (2.5-4.5); POTASSIUM 4.6 mmol/L (3.4-5.0)
[2019-02-08 06:30] LABS: CREATININE, serum 9.1 (0.52-1.25)
[2019-02-08 07:49] VITALS: BP 148/60; PULSE 47; TEMP 98
--- NOTE | 2019-02-08 08:45 | NUR ---
hansel going down to IMCU 18 for dialysis at this time
--- NOTE | 2019-02-08 13:00 | NUR ---
Assessment completed, alert/oriented, vital signs stable, denies pain or discomfort, patient just got done with dialysis and the had and ECHO done/ Cards consulted for bradycardia and planning for Holter monitory upon discharge, heart RRR/distal pulses are palapble, omar at times, lung SCTA, denies any chest discmfort or SOA, she is eating her lunch and denies need, will continue to monitor
[2019-02-08 13:09] VITALS: BP 167/67; PULSE 54; TEMP 97.5
[2019-02-08 16:32] VITALS: BP 156/59; PULSE 58; TEMP 98.2
[2019-02-08 19:40] VITALS: BP 149/61; PULSE 66; TEMP 98.4
--- NOTE | 2019-02-08 19:50 | NUR ---
Shift assessment complete. Pt resting in bed, awake, a&o c occasional confused statements. Pt denies pain or any other v/o. INT patent. HD AVF noted to R upper arm, large area of ecchymosis around site, no other complications, strong bruit/thrill. Pt denies further needs. Call light in reach, bed alarm on. Will continue to monitor.
[2019-02-08 23:58] VITALS: BP 154/66; PULSE 62; TEMP 98
[2019-02-09 03:04] VITALS: BP 154/65; PULSE 50; TEMP 97.8
[2019-02-09 06:10] LABS: BASO # 0.1 (0.0-0.2); BASO % 0.4 % (0.0-2.0); EOS # 0.5 (0.0-0.7); EOS % 4.1 % (0-4.0); GRAN # 7.8 (1.4-6.5); GRAN % 68.7 % (42.2-75.2); HEMOGLOBIN 11.5 g/dl (12.5-16.0); LYMPH # 2.3 (1.2-3.4); LYMPH % 20.2 % (20.0-51.0); MEAN CELL VOLUME 91 fl (80.0-100.0); MEAN CORPUSCULAR HEMOGLOBIN 30 pg (27.0-31.0); MEAN CORPUSCULAR HGB CONC 33 g/dl (33.0-37.0); MEAN PLATELET VOLUME 10.5 fl (7.4-10.4); MONO # 0.7 (0.1-0.6); MONO % 6.2 % (1.7-9.3); PLATELET COUNT 205 K/mm3 (130-400); RED BLOOD COUNT 3.86 M/mm3 (4.10-5.30); REDCELL DISTRIBUTION WIDTH-CV 13.1 % (11.5-14.5)
[2019-02-09 06:23] LABS: ALBUMIN 3.9 gm/dL (3.5-5.0); CALCIUM 9.8 mg/dL (8.4-10.2); POTASSIUM 4.1 mmol/L (3.4-5.0)
[2019-02-09 06:25] LABS: CREATININE, serum 6.14 (0.52-1.25)
[2019-02-09 07:33] VITALS: BP 148/55; PULSE 57; TEMP 98
--- NOTE | 2019-02-09 08:43 | NUR ---
Pt assessment complete. Pt is sitting up in bed eating breakfast upon entry. She is A/O x4, conversing appropriately. Pt denies any pain. No SOB. Pt denies N/V, ate all of breakfast. Reports she will not be dialyizing today. POC discussed with patient who verbalizes understanding. No needs at this time. Call light within reach. Will continue to monitor.
--- NOTE | 2019-02-09 09:13 | NUR ---
Initial visit; Hollie thanked Hematologist for looking in on her and offering prayer and God's blessings and to keep her in Hematologist's prayers.
[2019-02-09 09:15] LABS: KAPPA FREE LIGHT CHAIN-SERUM 225.92 mg/L (()); KAPPA LAMBDA RATIO 2.11 ratio (()); LAMDA FREE LIGHT CHAIN SERUM 107.28 mg/L (())
[2019-02-09 11:28] VITALS: BP 167/64; PULSE 59; TEMP 98.1
--- NOTE | 2019-02-09 13:51 | NUR ---
Rand, RN with Dr. Pizarro, informed BENSON that the patient and the patient's family are interested in a short term stay at a SNF. BENSON then met with the patient and confirmed the above information. BENSON presented the patient with Medicare.[employer]'s list of nursing homes within the [facility]. The patient requested that SW contact her son to discuss the options. BENSON then contacted the patient's son, Yosi, and reviewed the list. The patient's son preferred 1) [facility] 2) [facility]. BENSON then met with the patient to inform her of her son's preference. The patient was in agreeance to the preferences. Patient Choice Form signed by the patient and she was provided a copy. BENSON contacted and faxed a referral to both facilities. SW awaiting their screens. The patient also completed a DPOA-HC. She designated her son (Yosi), [id number] (Pennie Flores), and her friend (Rosetta Maldonado). BENSON and Kelsey KNOWLES, witnessed the patient's signature. The patient was provided with the original and some copies. A copy was placed in the patient's chart.
[2019-02-09 16:21] VITALS: BP 199/85; PULSE 83; TEMP 97.9
--- NOTE | 2019-02-09 18:41 | NUR ---
Pt had uneventful day. She rested well. No pain or discomfort. No concerns. Neuro checks WNL. Elevated BP tonight, will receive PM dose of BP meds. No needs at this time. Call light within reach.
--- NOTE | 2019-02-09 19:20 | NUR ---
Shift assessment complete. Pt resting in bed, awake, a&o, cooperative c cares. Pt denies pain or any other c/o at this time. INT patent. Tele in place. HD AVF noted to R upper arm, patent c good blood return. Pt denies needs. Call light in reach, will continue to monitor.
[2019-02-09 19:36] VITALS: BP 183/70; PULSE 79; TEMP 98.3
[2019-02-09 23:41] VITALS: BP 177/68; PULSE 70; TEMP 97.8
[2019-02-10 06:08] LABS: BASO # 0.1 (0.0-0.2); BASO % 0.5 % (0.0-2.0); EOS # 0.5 (0.0-0.7); EOS % 4.9 % (0-4.0); GRAN # 5.9 (1.4-6.5); GRAN % 62.4 % (42.2-75.2); HEMOGLOBIN 11.7 g/dl (12.5-16.0); LYMPH # 2.4 (1.2-3.4); LYMPH % 25.2 % (20.0-51.0); MEAN CELL VOLUME 89 fl (80.0-100.0); MEAN CORPUSCULAR HEMOGLOBIN 30 pg (27.0-31.0); MEAN CORPUSCULAR HGB CONC 34 g/dl (33.0-37.0); MEAN PLATELET VOLUME 10.1 fl (7.4-10.4); MONO # 0.6 (0.1-0.6); MONO % 6.7 % (1.7-9.3); PLATELET COUNT 222 K/mm3 (130-400); RED BLOOD COUNT 3.86 M/mm3 (4.10-5.30); REDCELL DISTRIBUTION WIDTH-CV 13.2 % (11.5-14.5)
[2019-02-10 06:14] LABS: HEMATOCRIT 34.5 % (37.0-47.0)
[2019-02-10 06:21] LABS: ALBUMIN 4.1 gm/dL (3.5-5.0); CALCIUM 10.5 mg/dL (8.4-10.2); PHOSPHOROUS 6.2 mg/dL (2.5-4.5); POTASSIUM 4.6 mmol/L (3.4-5.0)
[2019-02-10 06:22] LABS: CREATININE, serum 7.88 (0.52-1.25)
[2019-02-10 08:00] VITALS: BP 176/83; PULSE 69; TEMP 97.7
--- NOTE | 2019-02-10 08:13 | NUR ---
Pt down for dialysis at this time.
--- NOTE | 2019-02-10 11:21 | NUR ---
BENSON contacted and faxed updates to [facility]. SW awaiting their screens.
--- NOTE | 2019-02-10 12:20 | NUR ---
Pt back from dialysis at this time. She is A/O x4. Her breathing is even and unlabored on RA. Pt denies SOB. No pain at this time. Pt denies N/V. Lunch ordered for patient. Reviewed new bp medication regimen with patient who verbalizes understanding. No needs at this time. Call light within reach.
[2019-02-10 12:28] VITALS: BP 186/66; PULSE 62; TEMP 98.6
--- NOTE | 2019-02-10 14:07 | NUR ---
Ivet, at [facility], reports that they are unable to accept the patient. Zaid, at [facility], reports that she has sent the patient's information to their durable medical equipment repairer, Dr. Lilly, to see if he will follow the patient's care while there. SW to continue to follow.
[2019-02-10 14:52] VITALS: BP 181/67; PULSE 64
[2019-02-10 16:13] VITALS: BP 175/81; PULSE 70; TEMP 98.9
--- NOTE | 2019-02-10 19:11 | NUR ---
Pt had uneventful day. Had dialysis, but per report they did not take off any fluid. Pt continues to have high BP, no changes in orders, Dr. Pizarro aware. No pain. Neuro checks WNL.
[2019-02-10 19:15] VITALS: BP 158/81; PULSE 77; TEMP 98.8
--- NOTE | 2019-02-10 19:45 | NUR ---
Patient assessed at this time. Alert and oriented x 4, and able to make needs known. Denies having pain and discomfort at this time. Does runny nose/congestion, stating she's been fighting off a cold. Perpheral IV to LAC flushed. AV fistula to RUE. Bruising present to area. Positive bruit and thrill. Site is without redness, warmth, swelling, and pain. Denies having cough, SOB, and dypsnea. LS CTA. Respirations even and unlabored. Telemetry monitoring in place. Sinus bradycardia-HR in 40s, but asymptomatic. Capillary refill less than 3 seconds. Non-tenting skin turgor. BSAx4. Abdomen soft and non-tender. No edema. Voices no questions, needs, or concerns at this time. Resting in bed with call light within reach.
[2019-02-11 00:10] VITALS: BP 154/62; PULSE 56; TEMP 97.3
[2019-02-11 03:54] VITALS: BP 146/68; PULSE 54; TEMP 97.4
--- NOTE | 2019-02-11 05:43 | NUR ---
Patient has been resting in bed with eyes closed. Denies having pain and discomfort. Voices no questions, needs, or concerns at this time. Call light is within reach.
[2019-02-11 06:12] LABS: BASO # 0.1 (0.0-0.2); BASO % 0.6 % (0.0-2.0); EOS # 0.4 (0.0-0.7); EOS % 3.8 % (0-4.0); GRAN # 6.1 (1.4-6.5); HEMOGLOBIN 11.7 g/dl (12.5-16.0); LYMPH # 2.5 (1.2-3.4); LYMPH % 25.7 % (20.0-51.0); MEAN CELL VOLUME 91 fl (80.0-100.0); MEAN CORPUSCULAR HEMOGLOBIN 30 pg (27.0-31.0); MEAN CORPUSCULAR HGB CONC 33 g/dl (33.0-37.0); MEAN PLATELET VOLUME 9.8 fl (7.4-10.4); MONO # 0.6 (0.1-0.6); MONO % 6.5 % (1.7-9.3); PLATELET COUNT 220 K/mm3 (130-400); RED BLOOD COUNT 3.88 M/mm3 (4.10-5.30); REDCELL DISTRIBUTION WIDTH-CV 13.4 % (11.5-14.5)
[2019-02-11 06:15] LABS: HEMATOCRIT 35.1 % (37.0-47.0)
[2019-02-11 06:29] LABS: ALBUMIN 4.3 gm/dL (3.5-5.0); CALCIUM 9.9 mg/dL (8.4-10.2); CREATININE, serum 5.36 (0.52-1.25); PHOSPHOROUS 4.4 mg/dL (2.5-4.5); POTASSIUM 4.5 mmol/L (3.4-5.0)
[2019-02-11 08:00] VITALS: BP 156/61; PULSE 62; TEMP 98.2
--- NOTE | 2019-02-11 09:11 | NUR ---
Pt awake and alert, talkative, no C/O pain at this time, shift assessments complete, left pt call light in reach.
[2019-02-11] MEDS ORDERED: CATAPRES0.3 MG PO (10:59)
[2019-02-11 11:15] VITALS: BP 118/65; PULSE 61; TEMP 98.5
--- NOTE | 2019-02-11 15:39 | NUR ---
Zaid, at [facility], reports thats Dr. Lilly will be gone through the weekend and will need to see if the event management consultant doctor will follow the patient. BENSON informed Dr. Pizarro. Dr. Pizarro reports that he will follow the patient's care. BENSON updated Zaid. Zaid reports that they are able to accept the patient for a skilled stay. BENSON informed the patient and the patient's son, Yosi, via phone. They patient is in agreeance to transfer there. The patient is to discharge today, 02/11, to [facility] for a skilled stay. Transportation was scheduled for around 1630, via [facility]. BENSON informed the patient, patient's nurse, and the patient's son via phone. They were all in agreeance to the time. BENSON also presented and explained the IM form to the patient. The patient verbalized understanding, signed, and she was provided a copy. No additional needs at this time.
--- NOTE | 2019-02-11 16:59 | NUR ---
Pt discharged to [facility], escorted to [facility], left [facility] transportation.
== END 2019-02-11 17:00 | disposition home health service (06) | DRG 304 ==
LOC: COL.ER 23:13 → MEDICAL 02-07 03:18
PROVIDERS: Emergency Medicine; ADMIT Internal Medicine Nephrology
PROC: 5A1D70Z Performance of Urinary Filtration, Intermittent, Less than 6 Hours Per Day (ICD-10-PCS; principal; 2019-02-07)
DX: I16.1 Hypertensive emergency (principal); N18.6 End stage renal disease; G93.41 Metabolic encephalopathy; I12.0 Hypertensive chronic kidney disease with stage 5 chronic kidney disease or end stage renal disease; R50.9 Fever, unspecified; Z99.2 Dependence on renal dialysis
CPT/HCPCS: J2916; J7030; J7050

== ENCOUNTER 2019-03-04 18:17 | Inpatient (IN) | payer MEDICARE ==
[~2019-03-04] VITALS: Ht 152.4 cm; Wt 49.8 kg
[~2019-03-04 18:17] MED LIST changes: +CATAPRES0.3 MG PO
[2019-03-04 18:52] LABS: BASO # 0.1 (0.0-0.2); BASO % 0.5 % (0.0-2.0); EOS # 0.1 (0.0-0.7); GRAN # 11.1 (1.4-6.5); GRAN % 84.9 % (42.2-75.2); HEMOGLOBIN 11.3 g/dl (12.5-16.0); LYMPH # 1.2 (1.2-3.4); MEAN CELL VOLUME 88 fl (80.0-100.0); MEAN CORPUSCULAR HEMOGLOBIN 30 pg (27.0-31.0); MEAN CORPUSCULAR HGB CONC 34 g/dl (33.0-37.0); MEAN PLATELET VOLUME 10.6 fl (7.4-10.4); MONO # 0.6 (0.1-0.6); MONO % 4.2 % (1.7-9.3); PLATELET COUNT 204 K/mm3 (130-400); RED BLOOD COUNT 3.73 M/mm3 (4.10-5.30)
[2019-03-04 19:05] LABS: ALBUMIN 4.5 gm/dL (3.5-5.0); BILIRUBIN,TOTAL 0.6 mg/dL (0.0-1.0); CALCIUM 9.9 mg/dL (8.4-10.2); POTASSIUM 4.1 mmol/L (3.4-5.0)
[2019-03-04 19:06] LABS: CREATININE, serum 8.77 (0.52-1.25)
[2019-03-04 19:22] LABS: HEMATOCRIT 32.9 % (37.0-47.0)
[2019-03-04 21:35] VITALS: BP 183/72; PULSE 66; TEMP 97.7
--- NOTE | 2019-03-04 22:45 | NUR ---
Admitted to medical floor from ER with DX chronic kidney failure- dialysis pt, missed dialysis appt today due to no transporatation,states vomited after supper tonight-- no nausea/vomiting now- states feels fine,, INT to left AC, Tele on, fistula to right upper arm-bruising but no drainage-- resticted arm band on
[2019-03-04 23:34] VITALS: BP 151/69; PULSE 62; TEMP 98
[2019-03-05] VITALS (16 sets, daily range): BP systolic 167–210; BP diastolic 74–100; PULSE 60–90; TEMP 97.2–98.9
--- NOTE | 2019-03-05 05:51 | NUR ---
Very quiet night since admitted- no requests, has been resting well, will have dialysis sometime today, tele on- denies pain, nausea.
--- NOTE | 2019-03-05 08:52 | NUR ---
Pt assessment completed and charted. Pt laying in bed. Pt denies pain, states she is "hungry". No episodes of vomiting noted. Denies SOB, dizziness, chest pain, nausea, diarrhea, pain, numbness or tingling. SAURABH fistula present, no complications noted. LAC INT IV flushes w/ no complications. Pulses strong bilaterally, lung sounds clear, heart RRR. Pt on tele and room air. No other concerns voiced. Pt escorted to dialysis via WC.
--- NOTE | 2019-03-05 13:38 | NUR ---
Pt back from dialysis, dressing to SAURABH fistula, CDI. LAC INT IV has some drainage but flushes well, will redress site. Denies dizziness, pain, nausea at this time. Tolerating food well.
--- NOTE | 2019-03-05 17:44 | NUR ---
Pt to discharge. Discharge instructions discussed and reviewed with patient who verbalizes understanding. LAC INT IV dc'd w/ catheter tip intact and no complications. No other concerns. voiced, all questions answered.
--- NOTE | 2019-03-05 18:49 | NUR ---
Pt BP elevated, administered PRN hydralazine per JUL.
== END 2019-03-05 18:53 | disposition home or self-care (01) | DRG 391 ==
LOC: COL.ER 18:17 → MEDICAL 19:23
PROVIDERS: Family Medicine; ADMIT Internal Medicine Nephrology
DX: A05.9 Bacterial foodborne intoxication, unspecified (principal); N18.6 End stage renal disease; I12.0 Hypertensive chronic kidney disease with stage 5 chronic kidney disease or end stage renal disease; N25.81 Secondary hyperparathyroidism of renal origin; I69.354 Hemiplegia and hemiparesis following cerebral infarction affecting left non-dominant side; G89.29 Other chronic pain; M54.5 Low back pain; F41.9 Anxiety disorder, unspecified; D63.1 Anemia in chronic kidney disease; Z91.15 Patient's noncompliance with renal dialysis; Z99.2 Dependence on renal dialysis
CPT/HCPCS: J1644; J7030

== ENCOUNTER 2019-10-02 18:36 | Inpatient (IN) | payer MEDICARE, OTHER ==
[~2019-10-02] VITALS: Ht 152.4 cm; Wt 48.0 kg
[2019-10-02 21:05] VITALS: BP 132/72; PULSE 53; TEMP 98.7
[2019-10-02 22:19] LABS: ARTERIAL BLD GAS O2 SATURATION 95.7 % (92-100); ARTERIAL BLOOD GAS BASE EXCESS 1.3 (-2-2); ARTERIAL BLOOD GAS HCO3 24.9 meq/L (22-26); ARTERIAL BLOOD GAS PCO2 35.8 mmHg (35-45); ARTERIAL BLOOD GAS PO2 80.8 mmHg (80-100); ARTERIAL BLOOD GAS pH 7.46 (7.35-7.45)
[2019-10-03 01:08] LABS: ALCOHOL(ethanol),MEDICAL < 10 mg/dL
[2019-10-03 01:24] LABS: TROPONIN-I < 0.012 ng/mL (0.000-0.035)
[2019-10-03 02:04] VITALS: BP 156/78
[2019-10-03] MEDS ORDERED: CATAPRES0.2 MG PO (02:21)
[2019-10-03] MEDS ORDERED: COZAAR100 MG PO (02:22)
[2019-10-03] MEDS ORDERED: NORVASC 5MG5 MG/TAB PO (02:22)
[2019-10-03 04:00] VITALS: BP 172/70; PULSE 56; TEMP 98
[2019-10-03 07:02] LABS: BASO # 0.1 (0.0-0.2); BASO % 0.7 % (0.0-2.0); EOS # 0.2 (0.0-0.7); EOS % 2.2 % (0-4.0); GRAN # 5.6 (1.4-6.5); GRAN % 69.5 % (42.2-75.2); HEMOGLOBIN 11.2 g/dl (12.5-16.0); LYMPH # 1.6 (1.2-3.4); LYMPH % 20.1 % (20.0-51.0); MEAN CELL VOLUME 95 fl (80.0-100.0); MEAN CORPUSCULAR HEMOGLOBIN 31 pg (27.0-31.0); MEAN CORPUSCULAR HGB CONC 33 g/dl (33.0-37.0); MEAN PLATELET VOLUME 11.5 fl (7.4-10.4); MONO # 0.6 (0.1-0.6); MONO % 7.4 % (1.7-9.3); PLATELET COUNT 173 K/mm3 (130-400); RED BLOOD COUNT 3.64 M/mm3 (4.10-5.30)
[2019-10-03 07:03] LABS: HEMATOCRIT 34.5 % (37.0-47.0)
[2019-10-03 07:11] LABS: ALBUMIN 3.6 gm/dL (3.5-5.0); BILIRUBIN,TOTAL 0.6 mg/dL (0.0-1.0); CALCIUM 8.8 mg/dL (8.4-10.2); CREATININE, serum 6.85 (0.52-1.25); MAGNESIUM 2.3 mg/dL (1.6-2.3); PHOSPHOROUS 5.4 mg/dL (2.5-4.5); POTASSIUM 3.7 mmol/L (3.4-5.0); TOTAL PROTEIN 6.9 gm/dL (6.4-8.2)
[2019-10-03 08:43] VITALS: BP 157/75; PULSE 57; TEMP 97.6
--- NOTE | 2019-10-03 08:58 | NUR ---
Assessment complete. Pt resting in bed on entry. Requests to use the restroom. Ambulated well with stand by assist. She is alert and partially oriented at this time. She does remember the situation that brought her here. Vitals were stable. IV site CD&I, flushed well. She is now sitting up eating breakfast. Reported minor pain in lower back while standing. She is aware to call before ambulating. No other needs at this time. Call light is in reach. Will continue to monitor.
[2019-10-03 10:52] LABS: TRICYCLIC ANTIDEPRESS URINE NEGATIVE
[2019-10-03 11:54] VITALS: BP 140/70; PULSE 48; TEMP 97
--- NOTE | 2019-10-03 15:28 | NUR ---
Pt has been stable and comfortable thorugh the day. No complaints of pain or discomfort. SHe is concerned that she lost her necklace, I have searched the room and all of her belongings as well as checked her initial assessment to see if it was documented as a valuable and did not see anything but her walker. Will pass this on to classroom teacher as she is very concerned. No other complaints. SHe is aware to call before ambulating. Fall risk precautions are in place. Call light in reach. No other needs.
[2019-10-03 16:05] VITALS: BP 159/70; PULSE 50; TEMP 97.7
--- NOTE | 2019-10-03 17:40 | NUR ---
Pt has had no complaints through the day. Ambulates well, gait just is not steady.She is aware to call before getting up. When I entered the room she had removed her gown and SCDs because she was looking for her necklace. I got her settled back in bed, necklace was not found, she refused to wear the yellow gown. No other needs were expressed at this time. Call light is in reach. Bed alarm is set.
--- NOTE | 2019-10-03 20:00 | NUR ---
PT IN BED WITH HOB AT 45 DEGREE ANGLE. PT UPSET BECAUSE SHE WANTS TO LEAVE. PT DOES NOT KNOW WHY SHE IS HERE. PT RAMBLES ABOUT DIFFERENT THINGS. PT'S BED ALARM WENT OFF AND PT TOOK OFF TELEMETRY. TALKED PT INTO PUTTING IT BACK ON. PT DENIES PAIN OR DISCOMFORT. PT HAS CALL LIGHT WITHIN REACH AND BED ALARM ON.
[2019-10-03 20:59] VITALS: BP 155/81; PULSE 64; TEMP 98
[2019-10-04] VITALS (7 sets, daily range): BP systolic 121–183; BP diastolic 62–111; PULSE 48–120; TEMP 97.5–9705
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
--- NOTE | 2019-10-04 08:00 | NUR ---
Pt refusing temperature check at this time.
--- NOTE | 2019-10-04 09:15 | NUR ---
Pt sitting in chair at this time. Pt alert and oriented to person and place only. Pt refusing telemetry at this time. Pt refusing yellow gown, gait belt and walker. Sitter at bedside. Pt denies any needs at this time. Call light within reach. Will continue to monitor.
--- NOTE | 2019-10-04 09:40 | NUR ---
IV start attempted to left forearm d/t previous IV site leaking, not flushing properly. Attempt failed. Pt tolerated well, cooperative with second nurse available to talk to pt during attempt. supervisor tellers notified for IV start.
[2019-10-04] MEDS ORDERED: KLONOPIN 0.5MG0.5 MG PO (14:26)
--- NOTE | 2019-10-04 15:56 | NUR ---
The patient has altered mental status. BENSON contacted the patient's son, Yosi (ph#[phone]), to discuss discharge plan. The patient lives alone in [place]. Ysoi reports that the patient was staying with his sister, Geetha, in [place] and that she got tired of taking care of the patient and sent her back here. He reports that the patient hardly ever bathes and has a cane and walker. She does not have a PCP at this time. She receives her medications at [facility] and he reports no difficulties obtaining her meds. The patient's DPOA-HC is in EMR. Her DPOA-HC is Yosi, Yosi's (Pennie), and a friend (Stephanie Maldonado). Yosi reports that they had been working on getting the patient set up with home health services through [facility] prior to hospitalization. Hereports that he does not want the patient returning back alone now since she was found to be confused and walking alongside the highway. Yosi is interested in looking into rehab for the patient and was agreeable for BENSON to send referrals to [facility], [facility], and [facility]. BENSON contacted and faxed a referral to all three facilities. Yosi was also interested in applying for Medicaid. BENSON consulted Financial Counselor, Bishop. BENSON awaiting screens and will continue to follow.
--- NOTE | 2019-10-04 18:45 | NUR ---
Pt sitting up in chair at this time eating dinner. Pt denied pain throughout shift. Pt rested most of the shift in her chair. INT to left upper forearm patent and without complications. RUE fistula free of complications. Pt denies any other needs at this time.
--- NOTE | 2019-10-04 18:49 | NUR ---
Report given to CALIXTO Cannon
--- NOTE | 2019-10-04 20:00 | NUR ---
At time of assessment, patient is sitting in chair watching TV. She is oriented to self, city and president but is unaware of her being in the hospital or what month/year it is. Her heart sounds are normal/regular at a bradycardic rate which is normal for her. Lung sounds are clear, no edema or pain is present. She is pleasant right now and is having conversation that sometimes makes sense and sometimes is random. Will continue to monitor.
[2019-10-05] VITALS: BP 152/53; PULSE 52; TEMP 98.2
[2019-10-05 00:52] LABS: FOLATE (FOLIC ACID) 9.2 ng/mL (>=4.0)
[2019-10-05 04:00] VITALS: BP 137/57; PULSE 60; TEMP 98
[2019-10-05 07:04] LABS: BASO # 0.1 (0.0-0.2); BASO % 0.7 % (0.0-2.0); EOS # 0.3 (0.0-0.7); EOS % 4.1 % (0-4.0); GRAN # 4.1 (1.4-6.5); GRAN % 58.4 % (42.2-75.2); HEMOGLOBIN 11.3 g/dl (12.5-16.0); LYMPH # 2.1 (1.2-3.4); LYMPH % 29.7 % (20.0-51.0); MEAN CELL VOLUME 94 fl (80.0-100.0); MEAN CORPUSCULAR HEMOGLOBIN 31 pg (27.0-31.0); MEAN CORPUSCULAR HGB CONC 33 g/dl (33.0-37.0); MEAN PLATELET VOLUME 11.5 fl (7.4-10.4); MONO # 0.5 (0.1-0.6); MONO % 6.7 % (1.7-9.3); PLATELET COUNT 160 K/mm3 (130-400); RED BLOOD COUNT 3.67 M/mm3 (4.10-5.30); REDCELL DISTRIBUTION WIDTH-CV 14.5 % (11.5-14.5)
[2019-10-05 07:12] LABS: ALBUMIN 3.7 gm/dL (3.5-5.0); CALCIUM 9.2 mg/dL (8.4-10.2); CREATININE, serum 9.77 (0.52-1.25); PHOSPHOROUS 7.2 mg/dL (2.5-4.5); POTASSIUM 4.4 mmol/L (3.4-5.0)
[2019-10-05 07:14] LABS: HEMATOCRIT 34.6 % (37.0-47.0)
--- NOTE | 2019-10-05 08:38 | NUR ---
Ivet, at [facility], reports thats they are unable to accept the patient. SW awaiting [facility]CV and [facility]'s screen.
--- NOTE | 2019-10-05 10:30 | NUR ---
patient is going to dialysis at this time
[2019-10-05 12:00] VITALS: BP 159/71; PULSE 50
--- NOTE | 2019-10-05 14:18 | NUR ---
The patient may tentatively be able to discharge tomorrow, 10/05. BENSON notified both [facility] and [facility] and faxed them updates. SW awaiting their screens. SW contacted and updated the patient's son, Yosi. SW to continue to follow.
[2019-10-05 16:57] VITALS: BP 133/53; PULSE 56; TEMP 98.6
--- NOTE | 2019-10-05 19:15 | NUR ---
Pt report received from dayshift RN at bedside. Pt is resting in bed with tv on and call light within reach. No s/s of distress noted at this time. Will continue to monitor.
[2019-10-05 19:26] VITALS: BP 169/56; PULSE 58; TEMP 98.5
[2019-10-05 23:36] VITALS: BP 170/42; PULSE 51; TEMP 98.9
--- NOTE | 2019-10-06 02:24 | NUR ---
Pt has had a quiet shift and has remained in bed watching tv. Pt is very concerned about when she is going to be able to be discharged so that she can "go home". Education provided to Pt that this engineering technical writer has not noted any imminent orders to discharge pt as of yet but that this may happen in the next day or two depending on her condition and the physician assessment. Pt is able to transfer to her feet and use her walker to ambulate to the restroom where she is able to manage her clothing and toileting hygiene independantly. Pt has had no reports of pain during the shift. Pt is compliant with care and medication regimen. At this time Pt is resting in bed with eyes closed and no s/s of distress noted. Will continue to monitor.
[2019-10-06 03:56] VITALS: BP 145/53; PULSE 49; TEMP 97.6
--- NOTE | 2019-10-06 05:06 | NUR ---
Pt is noted to be resting peacefully in bed with no s/s of distress noted. Call light is at Pt side. Will continue to monitor.
[2019-10-06 07:14] VITALS: BP 138/65; PULSE 52; TEMP 97.4
--- NOTE | 2019-10-06 08:50 | NUR ---
PT UP TO CHAIR EATING BREAKFAST, DENIES PAIN/DISCOMFORT. BED ALARM SET, CHAIR ALARM SET, PT ALERT TO PERSON AND PLACE BUT NOT TIME. PT SAID THE YEAR WAS 2021. SLITTER CUT OFF OPERATOR EQUAL. NO OTHER NEEDS AT THIS TIME.
[2019-10-06 11:29] VITALS: BP 139/67; PULSE 48; TEMP 97.4
[2019-10-06] MEDS ORDERED: OMNICEF 300MG300 MG PO (15:24)
[2019-10-06] MEDS ORDERED: SEROQUEL 2525 MG/TAB PO (15:26)
[2019-10-06 15:49] VITALS: BP 139/67; PULSE 48; TEMP 97.4
--- NOTE | 2019-10-06 16:20 | NUR ---
Tre, at [facility], reports that they are able to accept the patient. Zaid, at [facility], reports that they are able to accept the patient. SW attended clinical rounds. The patient is ready to discharge today. SW contacted and updated the patient's son, Yosi. Yosi would like to pursue with [facility]. SW updated both facilities. The patient is to discharge today, 10/05, to [facility] for a skilled stay. Transportation was scheduled at [id number], via [facility]. SW informed the patient's RN and the patient's son, Yosi. They were both agreeable to the time. SW also read the IM form outloud to Yosi. Yosi verbalized understanding and gave SW approval to sign the form on his behalf. No additional needs at this time.
--- NOTE | 2019-10-06 17:22 | NUR ---
PT TAKEN OUT VIA WHEELCHAIR WITH [facility]. [facility] REPORT CALLED TO MAL AT [facility]
== END 2019-10-06 17:23 | DRG 689 ==
LOC: MEDICAL 18:36
PROVIDERS: Nurse Practitioner Family; Physician Assistant; ADMIT Family Medicine
PROC: 5A1D70Z Performance of Urinary Filtration, Intermittent, Less than 6 Hours Per Day (ICD-10-PCS; principal; 2019-10-05)
DX: N39.0 Urinary tract infection, site not specified (principal); N18.6 End stage renal disease; G93.41 Metabolic encephalopathy; F03.91 Unspecified dementia, unspecified severity, with behavioral disturbance; N25.81 Secondary hyperparathyroidism of renal origin; I12.0 Hypertensive chronic kidney disease with stage 5 chronic kidney disease or end stage renal disease; Z86.73 Personal history of transient ischemic attack (TIA), and cerebral infarction without residual deficits; Z99.2 Dependence on renal dialysis; I71.4 Abdominal aortic aneurysm, without rupture; F43.21 Adjustment disorder with depressed mood; G89.29 Other chronic pain; D63.1 Anemia in chronic kidney disease; Z88.8 Allergy status to other drugs, medicaments and biological substances; Z91.040 Latex allergy status; Z20.828 Contact with and (suspected) exposure to other viral communicable diseases
CPT/HCPCS: 99223-AI; 99232-AI; 99239; J0360; J0696; J2060; J7030

== ENCOUNTER 2020-04-05 13:50 | Outpatient (CLI) | payer MEDICARE ==
[~2020-04-05] VITALS: Ht 152.4 cm; Wt 47.5 kg
[~2020-04-05 13:50] MED LIST changes: +KLONOPIN 0.5MG0.5 MG PO; +OMNICEF 300MG300 MG PO; +PHOS LO PO; +ROCEPHIN VIA1 G/VIAL IV; +SEROQUEL 2525 MG/TAB PO; +VANCOMYCIN HYD750 MG IV
[2020-04-05 15:41] VITALS: BP 179/98; PULSE 68; TEMP 98.6
== END 2020-04-05 16:06 | disposition home or self-care (01) ==
LOC: EUO 13:50 → SDCO 04-06 13:05 → EDSTATUS 04-06 14:00 → SDCO 04-06 14:00
DX: Z45.2 Encounter for adjustment and management of vascular access device (principal); R41.82 Altered mental status, unspecified
CPT/HCPCS: C1751

== ENCOUNTER → 2020-04-07 | Outpatient (CLI) | payer MEDICARE | LOC: ZLAB.STJ 15:11 | DX: I33.0 Acute and subacute infective endocarditis (principal) ==

== ENCOUNTER → 2020-04-13 | Outpatient (REF) ==
[2020-04-13 13:34] LABS: BASO % 0.4 % (0.0-2.0); EOS # 0.5 (0.0-0.7); EOS % 6.6 % (0-4.0); GRAN # 5.1 (1.4-6.5); GRAN % 65.7 % (42.2-75.2); LYMPH # 1.3 (1.2-3.4); LYMPH % 17.3 % (20.0-51.0); MEAN CELL VOLUME 93 fl (80.0-100.0); MEAN CORPUSCULAR HGB CONC 34 g/dl (33.0-37.0); MEAN PLATELET VOLUME 11.3 fl (7.4-10.4); MONO # 0.7 (0.1-0.6); MONO % 9.5 % (1.7-9.3); PLATELET COUNT 160 K/mm3 (130-400); RED BLOOD COUNT 2.71 M/mm3 (4.10-5.30)
[2020-04-13 13:36] LABS: HEMATOCRIT 25.3 % (37.0-47.0); HEMOGLOBIN 8.5 g/dl (12.5-16.0); MEAN CORPUSCULAR HEMOGLOBIN 31 pg (27.0-31.0)
== END ==
LOC: ZLAB.STJ 13:16
PROVIDERS: Family Medicine
DX: I12.9 Hypertensive chronic kidney disease with stage 1 through stage 4 chronic kidney disease, or unspecified chronic kidney disease (principal); N25.81 Secondary hyperparathyroidism of renal origin; N18.6 End stage renal disease; Z99.2 Dependence on renal dialysis

== ENCOUNTER → 2020-04-17 | Outpatient (REF) | LOC: ZCOL.LAB 19:48 | DX: I33.0 Acute and subacute infective endocarditis (principal) ==

== ENCOUNTER → 2020-04-19 | Outpatient (REF) ==
[2020-04-19 08:08] LABS: BASO % 0.5 % (0.0-2.0); EOS # 0.6 (0.0-0.7); EOS % 7.6 % (0-4.0); GRAN # 5.3 (1.4-6.5); GRAN % 66.7 % (42.2-75.2); LYMPH # 1.3 (1.2-3.4); MEAN CELL VOLUME 93 fl (80.0-100.0); MEAN CORPUSCULAR HGB CONC 34 g/dl (33.0-37.0); MEAN PLATELET VOLUME 10.5 fl (7.4-10.4); MONO # 0.7 (0.1-0.6); MONO % 8.8 % (1.7-9.3); PLATELET COUNT 162 K/mm3 (130-400); RED BLOOD COUNT 3.01 M/mm3 (4.10-5.30); REDCELL DISTRIBUTION WIDTH-CV 13.2 % (11.5-14.5)
[2020-04-19 08:10] LABS: HEMOGLOBIN 9.4 g/dl (12.5-16.0); MEAN CORPUSCULAR HEMOGLOBIN 31 pg (27.0-31.0)
[2020-04-19 08:14] LABS: ALBUMIN 3.5 gm/dL (3.5-5.0); BILIRUBIN,TOTAL 0.4 mg/dL (0.0-1.0); CALCIUM 9.1 mg/dL (8.4-10.2); CHOLESTEROL RISK RATIO 2.8; CREATININE, serum 7.4 (0.52-1.25); POTASSIUM 5.4 mmol/L (3.4-5.0); TOTAL PROTEIN 6.4 gm/dL (6.4-8.2)
[2020-04-19 08:44] LABS: THYROID STIMULATING HORMONE 3.99 uIU/mL (0.465-4.680)
== END ==
LOC: ZLAB.STJ 08:02
PROVIDERS: Family Medicine
DX: I12.0 Hypertensive chronic kidney disease with stage 5 chronic kidney disease or end stage renal disease (principal); N18.6 End stage renal disease; I33.0 Acute and subacute infective endocarditis; Z99.2 Dependence on renal dialysis

== ENCOUNTER → 2020-04-21 | Outpatient (CLI) | payer MEDICARE | LOC: ZLAB.STJ 21:52 | DX: I33.0 Acute and subacute infective endocarditis (principal) ==

== ENCOUNTER 2020-07-21 10:19 | Outpatient (CLI) | payer MEDICARE ==
[~2020-07-21] VITALS: Ht 152.4 cm; Wt 45.9 kg
[2020-07-21] VITALS (7 sets, daily range): BP systolic 166–195; BP diastolic 73–100; PULSE 54–61; TEMP 98.1
[2020-07-21 11:22] LABS: MEAN CELL VOLUME 90 fl (80.0-100.0); MEAN CORPUSCULAR HEMOGLOBIN 30 pg (27.0-31.0); MEAN CORPUSCULAR HGB CONC 34 g/dl (33.0-37.0); MEAN PLATELET VOLUME 11.7 fl (7.4-10.4); PLATELET COUNT 146 K/mm3 (130-400); RED BLOOD COUNT 3.63 M/mm3 (4.10-5.30); REDCELL DISTRIBUTION WIDTH-CV 13.1 % (11.5-14.5)
[2020-07-21 11:23] LABS: PROTHROMBIN TIME 11.5 SECONDS (9.7-12.8)
[2020-07-21 11:24] LABS: CALCIUM 9.6 mg/dL (8.4-10.2); CREATININE, serum 6.05 (0.52-1.25); HEMATOCRIT 32.6 % (37.0-47.0); POTASSIUM 4.3 mmol/L (3.4-5.0)
--- NOTE | 2020-07-21 12:20 | NUR ---
PT CARE ASSUMED, REPORT RECEIVED FROM MOODY DE LUNA. PT RESTING COMFORTABLY ON STRETCHER, GCS 15, PWD, REG AND UNLABORED RESPS. SINUS LIU ON MONITOR. EATING ICE CHIPS WITH NO PROBLEM. CALL LIGHT IN REACH
[2020-07-21] MEDS ORDERED: NORVASC 10MG10 MG PO (12:42)
--- NOTE | 2020-07-21 13:45 | NUR ---
Pt is ready for departure. I have reviewed dc/fu instructions with pt and with her son over the phone. Pt denies questions. IV is dc'd. cath intact. Pt has been ambulatory to bathroom and back from rm 12 with steady gait with her cane. Pt's son called pt an UBER, and pt is transported to her ride via wheelchair.
[2021-01-04] MEDS ORDERED: TUMS500 MG PO (00:23)
[2021-01-09] MEDS ORDERED: ULTRAM 50MG TAB50 MG PO (12:37)
[2021-01-09] MEDS ORDERED: PHOSLO667 MG PO (12:37)
== END 2020-07-21 14:14 | disposition home or self-care (01) ==
LOC: COL.RAD 10:19
PROVIDERS: Internal Medicine Cardiovascular Disease
DX: I38 Endocarditis, valve unspecified (principal)
CPT/HCPCS: J2704

== ENCOUNTER 2020-08-07 15:53 | Inpatient (IN) | payer MEDICARE ==
[~2020-08-07] VITALS: Ht 152.4 cm; Wt 61.0 kg
--- NOTE | 2020-08-07 16:19 | NUR ---
Radiation Control Worker received a phone call from Rand at [facility] who advised patient was coming to ED via EMS. Per Rand, patient is supposed to get dialysis three times a week, but has not been seen at dialysis since 07/31/20. Rand advised patient's son, Yosi is normally responsible for scheduling transportation to dialysis, but has not been doing it. Rand also advised that the dialysis center tried to schedule her dialysis transportation, but was told by [employer] that they are not authorized on her account to schedule rides for her. Rand stated that per report from the dialysis unit, patient's son Yosi is normally responsible for providing meals and setting up patient's medications, but has also not been doing this either. Patient has just arrived to ED and has been triaged. BENSON updated Juvenile Detention Officer and made report to Adult Protective Services, Intake #[id number].
[2020-08-07 17:45] LABS: BASO % 0.5 % (0.0-2.0); EOS # 0.3 (0.0-0.7); EOS % 3.5 % (0-4.0); GRAN # 5.3 (1.4-6.5); GRAN % 72.3 % (42.2-75.2); HEMOGLOBIN 10.7 g/dl (12.5-16.0); LYMPH # 1.3 (1.2-3.4); LYMPH % 18.1 % (20.0-51.0); MEAN CELL VOLUME 90 fl (80.0-100.0); MEAN CORPUSCULAR HEMOGLOBIN 30 pg (27.0-31.0); MEAN CORPUSCULAR HGB CONC 33 g/dl (33.0-37.0); MEAN PLATELET VOLUME 11.2 fl (7.4-10.4); MONO # 0.4 (0.1-0.6); MONO % 5.3 % (1.7-9.3); PLATELET COUNT 162 K/mm3 (130-400); RED BLOOD COUNT 3.59 M/mm3 (4.10-5.30); REDCELL DISTRIBUTION WIDTH-CV 13.2 % (11.5-14.5)
[2020-08-07 17:46] LABS: HEMATOCRIT 32.3 % (37.0-47.0)
[2020-08-07 17:51] LABS: PROTHROMBIN TIME 11.7 SECONDS (9.7-12.8)
[2020-08-07 17:53] LABS: PARTIAL THROMBOPLASTIN TIME 30.8 SECONDS (26.0-37.0)
[2020-08-07 18:03] LABS: ALANINE AMINOTRANSFERASE 12 U/L (4-34); ALBUMIN 4.5 gm/dL (3.5-5.0); ALKALINE PHOSPHATASE 90 U/L (50-136); ANION GAP 13 mmol/L (7-16); AST,SGOT 32 U/L (15-37); BILIRUBIN,TOTAL 1.2 mg/dL (0.0-1.0); BLOOD UREA NITROGEN 94 mg/dL (7-17); CALCIUM 8.9 mg/dL (8.4-10.2); CARBON DIOXIDE 18 mmol/L (22-30); CHLORIDE 108 mmol/L (98-107); CREATININE, serum 8.89 (0.52-1.25); GLUCOSE 93 mg/dL (74-106); LIPASE 151 U/L (23-300); SODIUM 138 mmol/L (137-145); TOTAL PROTEIN 8.4 gm/dL (6.4-8.2)
[2020-08-07 18:25] LABS: TROPONIN-I < 0.012 ng/mL (0.000-0.035)
[2020-08-07 20:52] VITALS: BP 157/54; PULSE 71; TEMP 97.4
[2020-08-07 21:54] LABS: ALBUMIN 4.3 gm/dL (3.5-5.0); CREATININE, serum 9.49 (0.52-1.25); PHOSPHOROUS 4.7 mg/dL (2.5-4.5)
[2020-08-07 23:58] VITALS: BP 174/58; PULSE 77; TEMP 98
--- NOTE | 2020-08-08 00:13 | NUR ---
Patient's BP 174/[address] Pizarro notified and orders 25 mg Q4 PRN hydralazine tab and to restart home losartan dose in AM. Will recheck in 30 minutes.
[2020-08-08 03:59] VITALS: BP 156/70; PULSE 85; TEMP 98.2
--- NOTE | 2020-08-08 04:33 | NUR ---
PATIENT SLEPT ON AND OFF THROUGH NIGHT, MULTIPLE TRIPS TO FOR BM. PATIENT HAS BEEN PLESANTWITHOUT NEEDS. N/C AT THIS TIME.
--- NOTE | 2020-08-08 07:26 | NUR ---
Pt down to dialysis at this time.
[2020-08-08 08:00] LABS: BASO % 0.4 % (0.0-2.0); EOS # 0.2 (0.0-0.7); EOS % 3.1 % (0-4.0); GRAN # 4.7 (1.4-6.5); GRAN % 70.2 % (42.2-75.2); HEMOGLOBIN 10.8 g/dl (12.5-16.0); LYMPH # 1.4 (1.2-3.4); LYMPH % 20.3 % (20.0-51.0); MEAN CELL VOLUME 88 fl (80.0-100.0); MEAN CORPUSCULAR HEMOGLOBIN 30 pg (27.0-31.0); MEAN CORPUSCULAR HGB CONC 34 g/dl (33.0-37.0); MEAN PLATELET VOLUME 10.3 fl (7.4-10.4); MONO # 0.4 (0.1-0.6); MONO % 5.9 % (1.7-9.3); PLATELET COUNT 165 K/mm3 (130-400); RED BLOOD COUNT 3.59 M/mm3 (4.10-5.30); REDCELL DISTRIBUTION WIDTH-CV 13.1 % (11.5-14.5)
[2020-08-08 08:02] LABS: HEMATOCRIT 31.6 % (37.0-47.0)
[2020-08-08 08:09] LABS: CREATININE, serum 6.94 (0.52-1.25); PHOSPHOROUS 3.9 mg/dL (2.5-4.5); POTASSIUM 4.4 mmol/L (3.4-5.0)
[2020-08-08 11:11] VITALS: BP 188/61; PULSE 62; TEMP 97.9
--- NOTE | 2020-08-08 11:33 | NUR ---
Patient tolerated HD tx, removed 300 mL of fluid. Next tx planned for 08/10/20 @ 0730.
--- NOTE | 2020-08-08 11:53 | NUR ---
First visit from the show host/hostess. Wedger And Gluer prayed for patient while standing outside of their door.
[2020-08-08 12:00] VITALS: BP 158/68; PULSE 59; TEMP 98.1
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
[2020-08-08 16:03] VITALS: BP 142/60; PULSE 55
--- NOTE | 2020-08-08 18:38 | NUR ---
Pt slept most of the day. Denied any pain or concerns. Up to the restroom with SBA. No needs at this time.
[2020-08-08 19:45] VITALS: BP 142/55; PULSE 60; TEMP 98
--- NOTE | 2020-08-08 21:07 | NUR ---
Patient laying in bed and watching TV upon enter the room. Patient alert and oriented. Patient denies any pain or discomfort. Denies SOB, dizziness, headache, N/V or diarrhea. Right upper arm dialysis site C/D/I. Scheduled meds given per JUL. Call light within reach. Patient denies any needs at this time.
[2020-08-08 23:07] VITALS: BP 144/55; PULSE 46; TEMP 97.3
--- NOTE | 2020-08-09 01:34 | NUR ---
Patient's HR was ranging from HR 44-46 on cardiac monitor around 0100. Called Dr. Pizarro and left voice message regarding patient's HR. Awaiting return call from Dr. Pizarro.
[2020-08-09 03:42] VITALS: BP 154/56; PULSE 46; TEMP 98.1
[2020-08-09 07:45] VITALS: BP 165/62; PULSE 56; TEMP 98.3
--- NOTE | 2020-08-09 07:53 | NUR ---
WILL HOLD BP MEDICATIONS UNTIL PT IS DONE WITH DIALYSIS.
--- NOTE | 2020-08-09 08:04 | NUR ---
PT VERY DROWSY, EDUCATED ON PT'S UPCOMING DIALYSIS TREATMENT, PT ALERT TO SELF AND LOCATION BUT NOT CURRENT DAY. LAC FLUSHED, IV SITE CDI W/O ERYTHEMA, PHONE AND CALL LIGHT AT BEDSIDE, HOLDING BP MEDS UNTIL AFTER DIALYSIS, LINEMARKER EQUAL, NO OTHER NEEDS AT THIS TIME.
--- NOTE | 2020-08-09 08:38 | NUR ---
DR. ALLEN CALLED, UPDATED ON PT HR, PT IN DIALYSIS
[2020-08-09 08:59] LABS: BASO % 0.5 % (0.0-2.0); EOS # 0.3 (0.0-0.7); EOS % 3.8 % (0-4.0); GRAN # 4.7 (1.4-6.5); GRAN % 58.2 % (42.2-75.2); HEMOGLOBIN 11.1 g/dl (12.5-16.0); LYMPH # 2.4 (1.2-3.4); LYMPH % 29.7 % (20.0-51.0); MEAN CELL VOLUME 89 fl (80.0-100.0); MEAN CORPUSCULAR HEMOGLOBIN 30 pg (27.0-31.0); MEAN CORPUSCULAR HGB CONC 34 g/dl (33.0-37.0); MEAN PLATELET VOLUME 10.4 fl (7.4-10.4); MONO # 0.6 (0.1-0.6); MONO % 7.7 % (1.7-9.3); PLATELET COUNT 168 K/mm3 (130-400); RED BLOOD COUNT 3.73 M/mm3 (4.10-5.30); REDCELL DISTRIBUTION WIDTH-CV 13.2 % (11.5-14.5)
[2020-08-09 09:02] LABS: HEMATOCRIT 33.1 % (37.0-47.0)
[2020-08-09 09:11] LABS: ALBUMIN 3.9 gm/dL (3.5-5.0); CALCIUM 9.3 mg/dL (8.4-10.2); CREATININE, serum 5.52 (0.52-1.25); PHOSPHOROUS 4.7 mg/dL (2.5-4.5); POTASSIUM 4.6 mmol/L (3.4-5.0)
--- NOTE | 2020-08-09 11:22 | NUR ---
PT BACK FROM DIALYSIS, RAMIRO DE LUNA REPORTING SYSTOLIC PRESSURES IN 190'S DURING TREATMENT. BP MEDICATION GIVEN ALONG WITH PHOSLO AND TUMS. PT ATE BREAKFAST AND SAID SHE WAS READY FOR LUNCH. LUNCH ORDER CALLED AND TO BE DELIVERED IN 30-45MIN. WILL RECHECK BP IN 30MIN TO SEE IF MEDICATIONS ARE TAKING EFFECT.
[2020-08-09 13:03] VITALS: BP 173/59; PULSE 54; TEMP 98.1
[2020-08-09 13:53] VITALS: BP 161/58
--- NOTE | 2020-08-09 15:55 | NUR ---
Pawn Broker collaborated with Dr. Pizarro about discharge plan. Dr. Pizarro advised that per the dialysis clinical quality analyst, patient would benefit from SNF placement. SW contacted patient's son, Yosi to review discharge plan. Yosi was open to having referrals sent to [facility] and [facility], but did not prefer one facility over the other. SW contacted both facilities and faxed referrals.
[2020-08-09 17:35] VITALS: BP 158/62; PULSE 66; TEMP 97.5
--- NOTE | 2020-08-09 18:10 | NUR ---
PT AO TO SELF AND PLACE BUT NOT CURRENT TIME. PT HAD DIALYSIS TODAY, PT BP CURRENTLY UNDER CONTROL AFTER HYDRALAZINE. PT DENIES PAIN, HAS BEEN IN BED FOR MOST OF DAY, CALL LIGHT AND PHONE IN BED WITH PT, REQUIRED HELP AND PROMPTING TO CALL FOR EACH MEAL. NO OTHER NEEDS
[2020-08-09 19:25] VITALS: BP 139/70; PULSE 94; TEMP 97.7
--- NOTE | 2020-08-09 20:55 | NUR ---
I recieved report from the dayshift nurse. Patient was laying in bed. She denies pain or shortness of breath. Her only complaint was being sleepy. I gave her the evening meds and dimmed the light and she is resting well.
[2020-08-10 04:46] VITALS: BP 148/57; PULSE 62; TEMP 98.3
[2020-08-10 08:31] VITALS: BP 155/55; PULSE 51; TEMP 98
--- NOTE | 2020-08-10 10:07 | NUR ---
Pt. assesment completed. Pt. laying in bed upon entrance. Alert and oriented. c/o abdominal discomfort/pain. Rates pain at a 5/10. S1 and S2 auscultated, regular rythm and rate. All lung bell bilaterally clear and equal. Demonstrates midly limited movement and general weakness. Skin warm and dry. Arteriovenous fistula on right forearm ausculated, bruit auscultated. Nurse will continue to monitor abdominal discomfort/pain. Patient expreses no further needs at this time. Call light in reach.
[2020-08-10] MEDS ORDERED: CATAPRES 0.1MG0.1 MG PO (10:52)
[2020-08-10 11:17] VITALS: BP 155/55; PULSE 51; TEMP 98
[2020-08-10 13:02] VITALS: BP 170/77; PULSE 67; TEMP 97.8
[2020-08-10 13:20] VITALS: BP 145/73
--- NOTE | 2020-08-10 14:35 | NUR ---
Nurse called [facility] and provided transfer report to [facility] staff.
--- NOTE | 2020-08-10 15:26 | NUR ---
Spouting Installer was contacted by Zaid at [facility] who advised they are going to decline referral. Tre at [facility] advised they can accept today and he inquired about patient's dialysis chair time. BENSON obtained time from Linda microbiology lab assistant who advised patient's chair time at [facility] is MWF @ 6557. BENSON provided time to Tre and set transport time for 1500. BENSON met with patient who is agreeable to discharge to [facility]. BENSON also contacted patient's son, Yosi who is in agreement and SW provided transport time. BENSON faxed discharge orders and negative COVID test to Tre at [facility].
--- NOTE | 2020-08-10 15:28 | NUR ---
Met with Pt. to discuss dicharge to [facility]. Patient expresses understanding. Left a/c INT dc'd. Necessary education provided. Pt. accompanied by nurse and [facility] staff.
[2021-01-04] MEDS ORDERED: TUMS500 MG PO (00:23)
[2021-01-09] MEDS ORDERED: PHOSLO667 MG PO (12:37)
[2021-01-09] MEDS ORDERED: ULTRAM 50MG TAB50 MG PO (12:37)
== END 2020-08-10 15:25 | DRG 640 ==
LOC: COL.ER 15:53 → MEDICAL 18:14 → COL.ER 18:14 → MEDICAL 08-08 10:23
PROVIDERS: Emergency Medicine; ADMIT Internal Medicine Nephrology
PROC: 5A1D70Z Performance of Urinary Filtration, Intermittent, Less than 6 Hours Per Day (ICD-10-PCS; principal; 2020-08-08)
DX: E87.5 Hyperkalemia (principal); N18.6 End stage renal disease; I12.0 Hypertensive chronic kidney disease with stage 5 chronic kidney disease or end stage renal disease; N25.81 Secondary hyperparathyroidism of renal origin; I16.0 Hypertensive urgency; Z99.2 Dependence on renal dialysis; Z91.15 Patient's noncompliance with renal dialysis; D63.1 Anemia in chronic kidney disease; F03.90 Unspecified dementia, unspecified severity, without behavioral disturbance, psychotic disturbance, mood disturbance, and anxiety; R00.1 Bradycardia, unspecified; T46.5X5A Adverse effect of other antihypertensive drugs, initial encounter; Z86.73 Personal history of transient ischemic attack (TIA), and cerebral infarction without residual deficits; I71.4 Abdominal aortic aneurysm, without rupture; G89.29 Other chronic pain; M54.9 Dorsalgia, unspecified; F41.9 Anxiety disorder, unspecified; E83.39 Other disorders of phosphorus metabolism; R41.0 Disorientation, unspecified; Z20.822 Contact with and (suspected) exposure to COVID-19
CPT/HCPCS: G0378; J0610; J1644; J1815; J7030

== ENCOUNTER → 2020-08-22 | Outpatient (REF) ==
[~2020-08-22] MED LIST changes: +PHOSLO667 MG PO; +TUMS500 MG PO
[2020-08-22 11:21] LABS: COLLECTION METHOD RANDOM VOIDED
[2020-08-22 11:37] LABS: PH 9 (5-8); SQUAMOUS EPITHELIAL 0-2 /hpf; URINE APPEARANCE Hazy; URINE BACTERIA Rare /hpf; URINE BILIRUBIN Negative (NEGATIVE); URINE BLOOD Negative (NEGATIVE); URINE COLOR Yellow; URINE GLUCOSE Negative (NEGATIVE); URINE KETONE Negative (NEGATIVE); URINE LEUKOCYTE ESTERASE Trace (NEGATIVE); URINE NITRATE Negative (NEGATIVE); URINE PROTEIN(semi-quant) 2+ (NEGATIVE); URINE RBC 0-2 /hpf; URINE UROBILINOGEN Negative (NEGATIVE); URINE WBC 0-2 /hpf
== END ==
LOC: ZLAB.STJ 11:20
PROVIDERS: Family Medicine
DX: R82.90 Unspecified abnormal findings in urine (principal)

== ENCOUNTER → 2020-08-28 | Outpatient (CLI) | payer MEDICARE ==
[2020-08-28 21:52] LABS: BASO # 0.1 (0.0-0.2); BASO % 0.8 % (0.0-2.0); EOS # 0.5 (0.0-0.7); EOS % 5.5 % (0-4.0); GRAN # 5.3 (1.4-6.5); GRAN % 61.4 % (42.2-75.2); HEMOGLOBIN 11.3 g/dl (12.5-16.0); LYMPH # 2.2 (1.2-3.4); LYMPH % 25.2 % (20.0-51.0); MEAN CELL VOLUME 91 fl (80.0-100.0); MEAN CORPUSCULAR HEMOGLOBIN 30 pg (27.0-31.0); MEAN CORPUSCULAR HGB CONC 33 g/dl (33.0-37.0); MEAN PLATELET VOLUME 10.6 fl (7.4-10.4); MONO # 0.6 (0.1-0.6); MONO % 6.9 % (1.7-9.3); PLATELET COUNT 273 K/mm3 (130-400); RED BLOOD COUNT 3.82 M/mm3 (4.10-5.30); REDCELL DISTRIBUTION WIDTH-CV 12.7 % (11.5-14.5)
[2020-08-28 21:54] LABS: HEMATOCRIT 34.7 % (37.0-47.0)
[2020-08-28 21:59] LABS: BILIRUBIN,TOTAL 0.6 mg/dL (0.0-1.0); CALCIUM 9.8 mg/dL (8.4-10.2); CREATININE, serum 9.33 (0.52-1.25); POTASSIUM 4.1 mmol/L (3.4-5.0); TOTAL PROTEIN 7.4 gm/dL (6.4-8.2)
[2020-08-28 22:30] LABS: THYROID STIMULATING HORMONE 1.36 uIU/mL (0.465-4.680)
== END ==
LOC: ZCOL.LAB 12:30
PROVIDERS: Family Medicine
DX: N18.6 End stage renal disease (principal); Z99.2 Dependence on renal dialysis

== ENCOUNTER 2020-09-15 13:22 | Emergency (ER) | payer MEDICARE ==
[~2020-09-15 13:22] MED LIST changes: -PHOSLO667 MG PO; -TUMS500 MG PO
[2020-09-15 15:21] LABS: BASO % 0.4 % (0.0-2.0); EOS # 0.3 (0.0-0.7); EOS % 2.8 % (0-4.0); GRAN # 9.4 (1.4-6.5); GRAN % 83.9 % (42.2-75.2); LYMPH # 0.6 (1.2-3.4); LYMPH % 4.9 % (20.0-51.0); MEAN CELL VOLUME 87 fl (80.0-100.0); MEAN CORPUSCULAR HGB CONC 35 g/dl (33.0-37.0); MEAN PLATELET VOLUME 10.6 fl (7.4-10.4); MONO # 0.8 (0.1-0.6); MONO % 7.4 % (1.7-9.3); PLATELET COUNT 176 K/mm3 (130-400); RED BLOOD COUNT 3.06 M/mm3 (4.10-5.30); REDCELL DISTRIBUTION WIDTH-CV 12.6 % (11.5-14.5)
[2020-09-15 15:23] LABS: ALBUMIN 4.4 gm/dL (3.5-5.0); BILIRUBIN,TOTAL 4.2 mg/dL (0.0-1.0); CALCIUM 8.5 mg/dL (8.4-10.2); CREATININE, serum 3.54 (0.52-1.25); TOTAL PROTEIN 8.1 gm/dL (6.4-8.2)
[2020-09-15 15:25] LABS: HEMATOCRIT 26.7 % (37.0-47.0); HEMOGLOBIN 9.4 g/dl (12.5-16.0); MEAN CORPUSCULAR HEMOGLOBIN 31 pg (27.0-31.0)
[2020-09-15 15:51] LABS: POTASSIUM 3.5 mmol/L (3.4-5.0)
[2020-09-15 18:26] VITALS: BP 176/84; PULSE 68; TEMP 98.4
[2021-01-04] MEDS ORDERED: TUMS500 MG PO (00:23)
[2021-01-09] MEDS ORDERED: PHOSLO667 MG PO (12:37)
[2021-01-09] MEDS ORDERED: ULTRAM 50MG TAB50 MG PO (12:37)
== END 2020-09-15 18:26 | disposition home or self-care (01) ==
LOC: COL.ER 13:22
PROVIDERS: Physician Assistant
DX: I12.0 Hypertensive chronic kidney disease with stage 5 chronic kidney disease or end stage renal disease (principal); N18.6 End stage renal disease; D63.1 Anemia in chronic kidney disease; Z99.2 Dependence on renal dialysis; Z88.6 Allergy status to analgesic agent; Z79.899 Other long term (current) drug therapy
CPT/HCPCS: J0500; J2405

== ENCOUNTER 2021-01-09 13:50 | Inpatient (IN) | payer MEDICARE ==
[~2021-01-09] VITALS: Ht 152.4 cm; Wt 51.1 kg
[~2021-01-09 13:50] MED LIST changes: +PHOSLO667 MG PO; +TUMS500 MG PO
[2021-01-09 18:10] VITALS: BP 141/49; PULSE 57; TEMP 98
--- NOTE | 2021-01-09 18:30 | NUR ---
Patient transferred to [facility] at 1615, admissions did not put her into the computer until after 1730. Patient has been doing well this afternoon. Minimal complaints of pain. She was worried about having to dialysis late tomorrow afternoon instead of the morning. Explained she will have rehab in the morning and that is why it will be switched to the afternoon. No other changes at this time. Call light within reach.
--- NOTE | 2021-01-09 20:52 | NUR ---
ALERT AND OX4. DENIES SOA, CHEST PAIN OR DIZZY. DENIES PAIN IN INF KNEE THAT WAS ASPIRATED TODAY. ATE 50% OF DINER. LT AC FLUSHED. RT ARM DIALSIS FISTULA. RA. SCD. PM MEDS GIVEN. POC DISCUSSED. BED IN LOW POSITION. CALL LIGHT WI REACH. NEEDS MET.
--- NOTE | 2021-01-10 06:30 | NUR ---
Report received form CALIXTO Thomas.
[2021-01-10 06:51] VITALS: BP 109/59; PULSE 79; TEMP 98
--- NOTE | 2021-01-10 09:44 | NUR ---
Assessment charted. Pt in chair at side of bed resting, did want to sleep until I woke her up at 0800 prior to therapy. Pt was alert and oriented, PRN pain meds provided for R knee pain, R knee is swollen and tender. Pt has AV fistula to SAURABH. Resting in chair after owrking with OT. Alamrs on, will ocitnue to monitor.
[2021-01-10 14:30] LABS: BASO # 0.1 (0.0-0.2); BASO % 0.5 % (0.0-2.0); EOS # 0.4 (0.0-0.7); GRAN # 7.4 (1.4-6.5); GRAN % 70.8 % (42.2-75.2); HEMOGLOBIN 10.6 g/dl (12.5-16.0); LYMPH % 18.6 % (20.0-51.0); MEAN CELL VOLUME 90 fl (80.0-100.0); MEAN CORPUSCULAR HEMOGLOBIN 30 pg (27.0-31.0); MEAN CORPUSCULAR HGB CONC 33 g/dl (33.0-37.0); MEAN PLATELET VOLUME 10.5 fl (7.4-10.4); MONO # 0.6 (0.1-0.6); MONO % 5.6 % (1.7-9.3); PLATELET COUNT 229 K/mm3 (130-400); RED BLOOD COUNT 3.58 M/mm3 (4.10-5.30); REDCELL DISTRIBUTION WIDTH-CV 12.8 % (11.5-14.5)
[2021-01-10 14:33] LABS: HEMATOCRIT 32.1 % (37.0-47.0)
[2021-01-10 14:37] LABS: INR 1.1 (0.8-3.0); PROTHROMBIN TIME 12.6 SECONDS (9.7-12.8)
[2021-01-10 14:39] LABS: PARTIAL THROMBOPLASTIN TIME 31.5 SECONDS (26.0-37.0)
[2021-01-10 14:53] LABS: ALBUMIN 4.1 gm/dL (3.5-5.0); CALCIUM 9.6 mg/dL (8.4-10.2); CREATININE, serum 7.77 (0.52-1.25); PHOSPHOROUS 5.2 mg/dL (2.5-4.5); POTASSIUM 4.2 mmol/L (3.4-5.0)
[2021-01-10 16:00] VITALS: BP 178/80; PULSE 52; TEMP 98.5
--- NOTE | 2021-01-10 18:33 | NUR ---
Pt went to dialysis today and returned, tolerated well. eating supper in bed now after dialysis, denies needs, did recieve PRN pain and nausea meds this am but denies needs since then. will give report to nightshift nurse who will resume care.
--- NOTE | 2021-01-10 21:03 | NUR ---
PT RESTING IN BED. PAIN MEDS GIVEN EARLIER HELPED WITH RT KNEE PAIN. RT KNEE SWOLLEN.- ARTHRITIC. INT TO LT F/A DC'D ART THIS TIME. SHIFT ASSESSMENT COMPLETED. CALL LIGHT IN REACH. BED ALARM SET.
[2021-01-10 23:50] LABS: HEPATITIS B SURFACE ANTIBODY 67.4 (()); HEPATITIS B SURFACE ANTIGEN Negative (Negative); HEPATITIS C VIRUS ANTIBODY Negative (Negative)
[2021-01-11 04:00] VITALS: BP 118/57; PULSE 48; TEMP 98
--- NOTE | 2021-01-11 13:00 | NUR ---
Maude from [facility] called and said she is cancelling transportation for patient for dialysis while she is here. She stated she would get with Linda, the other dialysis nurse to follow up with patient.
--- NOTE | 2021-01-11 14:11 | NUR ---
Welcomed pt to the Rehab unit. Explained the rehab process & goals. Completed SW assessment w/ pt. She is alert & oriented & able to communicate her needs & wants to others. She has her own lower teeth but no upper teeth & glasses. She lives in an apartment on the 3rd floor & uses the elevator. The bathroom has a tub/shower combo w/ curtain & grab bars. The toilet is standard height. Pt reports walking w/ a 4/w/walker & was independent w/ her self care. She also reports doing the cooking, housekeeping, & laundry. Her son does the shopping, & finance management. [facility] does helps w/ medication management. She has her own 4/w/walker. Pharmacy: [facility] & reports her son handles the finances. PCP: Dr. Leung DPOA: Pt s son, Yosi, is her POA & a copy is on file. Reviewed the team conference notes & informed her the plan is to re-evaluate next 01/17/21. Pt had no questions/concerns at this time about her rehab stay. SW will continue to follow to provide support & assist w/ d/c planning.
[2021-01-11 15:21] VITALS: BP 134/59; PULSE 55; TEMP 98.3
[2021-01-12 05:29] VITALS: BP 130/59; PULSE 58; TEMP 97.8
--- NOTE | 2021-01-12 09:43 | NUR ---
PT OUT TO MAK FOR THERAPY AND THEN TO THERAPY ROOM AM MEDS GIVEN PER ORDERS. PT AMBULATING WIHT THERAPY IN A HALTING UNSTEADY GAIT. VSS, EATING AND DRINKING.
--- NOTE | 2021-01-12 13:50 | NUR ---
Admission QIM scores were reviewed by the team. Code of 4 chosen for rolling left to right was determined by team discussion to be the most usual performance before interventions for this patient during the assessment period. Code of 4 chosen for sit to lying was determined by team discussion to be the most usual performance for this patient during the assessment period. Code of 4 chosen for lying to sitting on side of bed was determined by team discussion to be the most usual performance for this patient during the assessment period. Code of 3 for sit to stand was determined by team discussion to be the most usual performance for this patient during the assessment period. Code of 3 for chair/bed to chair transfers was determined by team discussion to be the most usual performance for this patient during the assessment period.--Muna Díaz, PD
[2021-01-12 16:18] VITALS: BP 155/57; PULSE 53; TEMP 97.6
--- NOTE | 2021-01-12 18:41 | NUR ---
RECEIVED CHANGE OF SHIFT REPORT FROM DAY SHIFT NURSE. EXIT ALARMS ON WHENEVER IN BED OR UP IN CHAIR.
--- NOTE | 2021-01-12 20:06 | NUR ---
REPORTS SCD CAUSES R LEG PAIN TO WORSEN, REFUSES SCDs.
--- NOTE | 2021-01-12 23:06 | NUR ---
PATIENT REQUIRES ASSISTANCE X1 WITH AMBULATIONS/ACTIVITIES OUT OF BED. EXIT ALARMS ON WHEN IN BED OR UP IN CHAIR. DENIES CHEST PAIN/SOA AND DENIES NUMBNESS/TINGLING TO EXTREMITIES AT THIS TIME. CALL LIGHT WITHIN REACH.
[2021-01-13 05:07] VITALS: BP 150/58; PULSE 66; TEMP 97.9
--- NOTE | 2021-01-13 06:50 | NUR ---
Report received from CALIXTO Fisher. Patient is sleeping in bed. Call light and bedside table are within reach. Will continue to monitor patient throughout shift.
--- NOTE | 2021-01-13 07:26 | NUR ---
CHANGE OF SHIFT REPORT GIVEN TO DAY SHIFT NURSE, DERIAN DE LUNA.
--- NOTE | 2021-01-13 13:00 | NUR ---
Patient has completed all therapies for the day and is resting in recliner. Patient denies pain at this time. Call light and bedside table are within reach.
--- NOTE | 2021-01-13 15:08 | NUR ---
This nurse spoke with QIANA Meeks for Dr. Streeter and she informed me that patient's dialysis will be pushed off until Friday01/15/21.
[2021-01-13 18:27] VITALS: BP 181/66; PULSE 63; TEMP 97.9
--- NOTE | 2021-01-13 19:18 | NUR ---
RECEIVED CHANGE OF SHIFT REPORT FROM DAY SHIFT NURSE.
[2021-01-14 04:11] VITALS: BP 137/59; PULSE 51; TEMP 97.8
--- NOTE | 2021-01-14 06:51 | NUR ---
Report received from CALIXTO Fisher. Patient is sleeping in bed. Call light and bedside table are within reach. Will continue to monitor patient throughout shift.
--- NOTE | 2021-01-14 07:03 | NUR ---
CHANGE OF SHIFT REPORT GIVEN TO DAY SHIFT NURSE, DERIAN DE LUNA.
--- NOTE | 2021-01-14 15:23 | NUR ---
Patient continues to ambulate without calling for help. THis nurse explained to the patient she must call before getting up because of safety issues. Patient stated, "I'm not going to fall. I am very careful." I again explained to her why she needs to call first. Call light, bedside table, and alarm is on bed.
[2021-01-14 18:00] VITALS: BP 144/57; PULSE 59; TEMP 98.3
--- NOTE | 2021-01-14 19:19 | NUR ---
RECEIVED CHANGE OF SHIFT REPORT FROM DAY SHIFT NURSE. EXIT ALARMS ON WHEN IN BED OR CHAIR. CALL LIGHT WITHIN REACH.
[2021-01-15 04:27] VITALS: BP 127/51; PULSE 52; TEMP 98.2
--- NOTE | 2021-01-15 06:58 | NUR ---
CHANGE OF SHIFT REPORT GIVEN TO JIM DE LUNA. PATIENT UP WITH X1 ASST, GAIT STEADY, USES GB/WALKER WITH AMBULATION. DENIED CHEST PAIN/SOA, DENIED NUMBNESS/TINGLING TO EXTREMITIES THIS SHIFT. CALL LIGHT WITHIN REACH, EXIT ALARMS IN USE WHEN IN BED OR UP IN CHAIR.
--- NOTE | 2021-01-15 07:08 | NUR ---
shift report received from CALIXTO Rivera
[2021-01-15 08:01] LABS: HEMOGLOBIN 9.6 g/dl (12.5-16.0); MEAN CELL VOLUME 92 fl (80.0-100.0); MEAN CORPUSCULAR HEMOGLOBIN 30 pg (27.0-31.0); MEAN CORPUSCULAR HGB CONC 33 g/dl (33.0-37.0); MEAN PLATELET VOLUME 10.5 fl (7.4-10.4); PLATELET COUNT 218 K/mm3 (130-400); RED BLOOD COUNT 3.16 M/mm3 (4.10-5.30); REDCELL DISTRIBUTION WIDTH-CV 12.8 % (11.5-14.5)
[2021-01-15 08:23] LABS: CALCIUM 9.3 mg/dL (8.4-10.2); CREATININE, serum 9.8 (0.52-1.25); MAGNESIUM 2.8 mg/dL (1.6-2.3); POTASSIUM 5.2 mmol/L (3.4-5.0)
--- NOTE | 2021-01-15 08:30 | NUR ---
sitting up in bed after having had breakfast, full assessment completed, see interventions for further info, speech therapy in to work with patient
--- NOTE | 2021-01-15 10:43 | NUR ---
up and about in room working with occupational therapy
--- NOTE | 2021-01-15 12:49 | NUR ---
assisted back to bed to rest a short time before dialysis
--- NOTE | 2021-01-15 14:14 | NUR ---
remains in dialysis
--- NOTE | 2021-01-15 16:22 | NUR ---
remains in dialysis
[2021-01-15 17:31] VITALS: BP 174/59; PULSE 55; TEMP 98.7
--- NOTE | 2021-01-15 17:32 | NUR ---
PATIENT TOLERATED HD TX TODAY WITH 240 ML FLUID REMOVAL. PATIENT REQUEST TO DC TX 18 MINS EARLY FOR RIGHT KNEE DISCOMFORT & DR. ALLEN AWARE. NEXT HD TX PLANNED FOR Friday01/17/21 @ 1230.
--- NOTE | 2021-01-15 17:51 | NUR ---
call light was going off and when entered the room and asked her if she needed something she said yes and that she was upset, was saying that her friend from her apartment came and wasn't able to see her and that she was told she had arthritis, she was in dialysis when the friend came, spoke with the dialysis nurse she states the friend did come in and visit for a minute, the nurse also stated the patient started to act upset and wanted the friend to leave and also to come off dialysis a little early, there was no mention of dialysis, assisted patient from chair to bed and she will try and rest
--- NOTE | 2021-01-15 19:10 | NUR ---
shift report given to CALIXTO Lackey
[2021-01-16 05:31] VITALS: BP 148/97; PULSE 61; TEMP 98.6
--- NOTE | 2021-01-16 07:15 | NUR ---
Report received from CALIXTO Lackey. Patient is sleeping in bed. Call light and bedside table are within reach. Will continue to monitor patient throughout shift.
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
--- NOTE | 2021-01-16 15:05 | NUR ---
Patient has completed all therapies for the day and is resting comfortably in bed. Patient denies pain at this time. Call light and bedside table are within reach.
[2021-01-16 16:31] VITALS: BP 152/53; PULSE 53; TEMP 98.5
--- NOTE | 2021-01-16 20:45 | NUR ---
Initial assessment done-- has been sleeping for the past couple hours,, is awake now, a little confused as to time,,thinks its 0900 in the morning-reoriented, states has some pain to right knee 5/10 but does not want pain meds, pt did eat a applesauce at this time, refusing SCD,s, Fistula to SAURABH with good thrill/bruit. Pt then did get a phone call from family and was happy about that- talking for awhile with family.
--- NOTE | 2021-01-17 04:39 | NUR ---
Quiet night- sleeping well,no requests.
[2021-01-17 05:25] VITALS: BP 135/56; PULSE 52; TEMP 98.1
--- NOTE | 2021-01-17 06:45 | NUR ---
Report recevied from CALIXTO Marquez. Patient is awake and resting in bed. Patient denies pain at this time. Call light and bedside table are within reach. Will continue to monitor patient throoughout shift.
--- NOTE | 2021-01-17 12:45 | NUR ---
Patient has left the floor to do dialysis.
[2021-01-17 13:53] LABS: BASO % 0.3 % (0.0-2.0); EOS # 0.4 (0.0-0.7); EOS % 3.8 % (0-4.0); GRAN # 7.4 (1.4-6.5); LYMPH # 1.5 (1.2-3.4); LYMPH % 14.6 % (20.0-51.0); MEAN CELL VOLUME 90 fl (80.0-100.0); MEAN CORPUSCULAR HGB CONC 33 g/dl (33.0-37.0); MONO # 0.7 (0.1-0.6); MONO % 6.9 % (1.7-9.3); PLATELET COUNT 205 K/mm3 (130-400); RED BLOOD COUNT 3.22 M/mm3 (4.10-5.30); REDCELL DISTRIBUTION WIDTH-CV 13.1 % (11.5-14.5)
[2021-01-17 13:58] LABS: HEMATOCRIT 29.1 % (37.0-47.0); HEMOGLOBIN 9.6 g/dl (12.5-16.0); MEAN CORPUSCULAR HEMOGLOBIN 30 pg (27.0-31.0)
[2021-01-17 14:03] LABS: ALBUMIN 3.7 gm/dL (3.5-5.0); CALCIUM 9.1 mg/dL (8.4-10.2); CREATININE, serum 6.4 (0.52-1.25); PHOSPHOROUS 3.3 mg/dL (2.5-4.5); POTASSIUM 4.4 mmol/L (3.4-5.0)
--- NOTE | 2021-01-17 15:47 | NUR ---
PATIENT TOLERATED HD TX WITH 300 ML FLUID REMOVAL. NEXT HD TX PLANNED FOR Friday01/19/21.
[2021-01-17 17:00] VITALS: BP 156/45; PULSE 55; TEMP 98.4
--- NOTE | 2021-01-17 19:30 | NUR ---
RECEIVED CHANGE OF SHIFT REPORT FROM DAY SHIFT NURSE.
--- NOTE | 2021-01-18 03:06 | NUR ---
PATIENT SLEEPING, DOES NOT WAKE WHEN ROOM IS ENTERED BY STAFF ON ROUNDS. EXIT ALARMS ON WHEN IN BED OR UP IN CHAIR WITH CALL LIGHT WITHIN REACH. DAY SHIFT NURSE REPORTS PATIENT HAS BEEN GETTING UP WITHOUT CALLING FOR STAFF SBA WITH AMBULATION EARLIER TODAY. REMINDED PATIENT TO CALL STAFF WHEN NEEDING TO GET OUT OF BED OR UP FROM CHAIR, WITH PATIENT NOT VERBALIZING RESPONSE.
[2021-01-18 04:58] VITALS: BP 163/64; PULSE 51; TEMP 98.2
--- NOTE | 2021-01-18 07:43 | NUR ---
CHANGE OF SHIFT REPORT GIVEN TO DAY SHIFT NURSE, INDRA DE LUNA.
--- NOTE | 2021-01-18 14:05 | NUR ---
Reviewed Team Conference notes from yesterday w/ pt since she was in dialysis. She stated she understood & agreed w/ current level of functioning. Informed her of the d/c for 01/24/21 to home w/ Home Health PT/OT/ST. Inquired if she had ever had Home Health before & told SW she isn't sure. Provided her w/ a list of home health agencies that could provide PT/OT/ST. Pt had no questions at this time.
[2021-01-18 16:40] VITALS: BP 153/71; PULSE 61; TEMP 98.2
--- NOTE | 2021-01-18 20:30 | NUR ---
PT PLEASANT AND COOPERATIVE TONIGHT. TALKED ABOUT STAYING ANOTHER WEEK. PT OK WITH THIS PLAN. PLAN FOR DIALYSIS TOMORROW. NO NEEDS AT THIS TIME. CALL LIGHT IN REACH. BED ALARM SET.
--- NOTE | 2021-01-18 22:07 | NUR ---
ASSISTED PT TO BR WITH WALKER. PT C/O RT KNEE PAIN. SEE MAR FOR PAIN MED GIVEN. PT VOIDED BUT FLUSHED. ASSISTED BACK TO BED. KPAD TO RT KNEE. ELEVATED WITH PILLOW. CALL LIGHT IN REACH. BED ALARM SET.
[2021-01-19 06:01] VITALS: BP 147/63; PULSE 54; TEMP 97.5
[2021-01-19 15:37] VITALS: BP 138/55; PULSE 60; TEMP 97.2
[2021-01-19 15:56] LABS: BASO % 0.4 % (0.0-2.0); EOS # 0.4 (0.0-0.7); EOS % 4.1 % (0-4.0); GRAN # 7.3 (1.4-6.5); GRAN % 73.3 % (42.2-75.2); LYMPH # 1.6 (1.2-3.4); LYMPH % 16.4 % (20.0-51.0); MEAN CELL VOLUME 89 fl (80.0-100.0); MEAN CORPUSCULAR HEMOGLOBIN 30 pg (27.0-31.0); MEAN CORPUSCULAR HGB CONC 34 g/dl (33.0-37.0); MEAN PLATELET VOLUME 10.3 fl (7.4-10.4); MONO # 0.5 (0.1-0.6); MONO % 5.4 % (1.7-9.3); PLATELET COUNT 192 K/mm3 (130-400); RED BLOOD COUNT 3.33 M/mm3 (4.10-5.30); REDCELL DISTRIBUTION WIDTH-CV 13.1 % (11.5-14.5)
[2021-01-19 15:59] LABS: HEMATOCRIT 29.5 % (37.0-47.0)
[2021-01-19 16:10] LABS: ALBUMIN 3.8 gm/dL (3.5-5.0); CALCIUM 8.9 mg/dL (8.4-10.2); CREATININE, serum 7.04 (0.52-1.25); PHOSPHOROUS 3.5 mg/dL (2.5-4.5); POTASSIUM 4.7 mmol/L (3.4-5.0)
[2021-01-19 16:33] VITALS: BP 173/64; PULSE 67; TEMP 98.5
--- NOTE | 2021-01-19 20:59 | NUR ---
Patient returned to the room from dialysis around 8:40 pm. Right upper arm dialysis site dressing C/D/I. Patient sitting up in the chair and eating ice-cream. All scheduled meds given per JUL. Assisted patient to the bathroom to void. Patient reports right knee hurt when ambulates. Refused pain meds at this time. Call light in reach. Bed alarms on. Will continue to monitor.
[2021-01-20 03:55] VITALS: BP 169/69; PULSE 59; TEMP 97.7
[2021-01-20 16:39] VITALS: BP 162/61; BP 170/59; PULSE 54; TEMP 98.2
--- NOTE | 2021-01-20 21:00 | NUR ---
PT RESTING IN BED. PT THOUGHT IT WAS GOING TO STORM BECAUSE IT WAS SO DARK OUT- FORGOT IT WAS NIGHT TIME. A LITTLE MORE FORGETFUL TONIGHT. ASSISTED PT TO BR WITH WALKER. PT C/O RT KNEE PAIN WHILE AMB. PUTTING VERY LITTLE WEIGHT ON IT. PT FLUSHED TOPILET BEFORE ASSESS URINE. BACK TO BED. CALL LIGHT IN REACH. BED ALARM SET.
[2021-01-21 04:57] VITALS: BP 152/59; PULSE 54; TEMP 97.9
--- NOTE | 2021-01-21 12:17 | NUR ---
Assisted pt to the restroom and then to the chair for lunch. Chair alarm on, call light within reach
--- NOTE | 2021-01-21 17:09 | NUR ---
Pt up in the chair today for meals, and then resting in bed inbetween. Pt did attempt to get up a few times without using the call light. Chair/bed alarm on and sounded during these times. Pt was consistently reminded to use the call button when needing to get up so that we can assist. Pt simply just shrugs her shoulders. Pt did have complaints of an upset stomach shortly after lunch. PRN nausea medication given. Pt did report that it helped.
[2021-01-21 17:13] VITALS: BP 166/80; PULSE 65; TEMP 98.3
[2021-01-22 05:06] VITALS: BP 151/62; PULSE 55; TEMP 97.9
--- NOTE | 2021-01-22 06:45 | NUR ---
Report received from CALIXTO Vega. Patient is sleeping in bed. Call light and bedside table are within reach. Will continue to monitor patient throughout shift.
--- NOTE | 2021-01-22 12:09 | NUR ---
CALIXTO Mckeon from dialysis called and said she was changing patient dialysis from today to tomorrow 01/23/21 and stated she would call if there were any more changes.
--- NOTE | 2021-01-22 12:53 | NUR ---
Initial visit; Patient thanked Director Of Security for looking in on her and offering God's blessings.
--- NOTE | 2021-01-22 13:17 | NUR ---
Patient has finished all therapies for the day and is resting in recliner. Call light and bedside table are within reach.
--- NOTE | 2021-01-22 14:04 | NUR ---
BENSON met with the patient to introduce oneself and to review d/c plan. The patient's discharge is set for this Friday with home health PT/OT/ST. IPR Director notified BENSON that the patient needs Medicare.[facility] list of home health agencies that serve [place]. SW provided that list to the patient. The patient states that she is tired and would like to try and get some rest. SW to follow up with the patient tomorrow on home health preference.
--- NOTE | 2021-01-22 15:49 | NUR ---
The PA notified BENSON that the patient informed her that she is needing a Medicare.gov list in [place]. BENSON contacted the patient's son, Yosi, to review d/c plan and confirm where the patient lives. Yosi's , Pennie, was also on the call. Yosi confirms that the patient lives in an apartment in [place]. Yosi is agreeable to the d/c plan. Him and his do not want [facility]. They were interested in [facility]. BENSON attempted to contact [facility]. BENSON left them a voicemail and faxed over a referral. Awaiting screen. Pennie's ph#[phone]
--- NOTE | 2021-01-22 16:09 | NUR ---
This nurse tried to schedule a follow up appointment with Dr. Leung and was told by the nurse it would be better if she found another PCM because she was seeing Dr. Lilly and he retired and the patient has never seen Dr. Leung, who is booked up and the patient would have to do new patient paperwork. She stated the last time the patient saw Dr. Lilly was 2018.
[2021-01-22 17:05] VITALS: BP 154/56; PULSE 57; TEMP 98.2
--- NOTE | 2021-01-22 19:30 | NUR ---
RECEIVED CHANGE OF SHIFT REPORT FROM DAY SHIFT NURSE. PATIENT UP IN ROOM INDEPENDENTLY WITH NO REPORTED PROBLEMS OR CONCERNS. RESTING IN BED DURING REPORT.
--- NOTE | 2021-01-22 22:20 | NUR ---
PATIENT WITH CONTINUED REFUSAL TO WEAR SCD SINCE ADMIT TO IPR. CALL LIGHT WITHIN REACH. AGREED TO HAVE WARM PACK ON TO RIGHT KNEE (AREA OF DISCOMFORT) OBSERVED SWELLING MORE TO INNER PART OF KNEE AND OBSERVED FAINT DISCOLORATION TO RIGHT KNEE.
[2021-01-23 04:44] VITALS: BP 116/46; PULSE 49; TEMP 97.5
--- NOTE | 2021-01-23 06:18 | NUR ---
DENIES ANY COMPLAINTS WHEN AWAKENED FOR VITALS CHECK EARLIER.
--- NOTE | 2021-01-23 07:10 | NUR ---
CHANGE OF SHIFT REPORT GIVEN TO DAY SHIFT NURSE, NOLA DE LUNA.
--- NOTE | 2021-01-23 09:45 | NUR ---
Pt having complaints of her stomach bothering her, PRN ionaan given
--- NOTE | 2021-01-23 11:34 | NUR ---
Jolynn, at [facility], reports that they do not have ST at this time. BENSON contacted Fatemeh at [facility]. Fatemeh reports that she is unsure if they will be able to take the patient on at this time, but requested that BENSON go ahead and send them a referral for them to review if they can. BENSON faxed a referral to [facility] and [facility]. Awaiting screens.
--- NOTE | 2021-01-23 12:45 | NUR ---
Pt in dialysis
[2021-01-23 13:36] LABS: BASO # 0.1 (0.0-0.2); BASO % 0.6 % (0.0-2.0); EOS # 0.5 (0.0-0.7); EOS % 4.9 % (0-4.0); GRAN # 7.6 (1.4-6.5); GRAN % 74.1 % (42.2-75.2); HEMOGLOBIN 10.1 g/dl (12.5-16.0); LYMPH # 1.7 (1.2-3.4); LYMPH % 16.3 % (20.0-51.0); MEAN CELL VOLUME 88 fl (80.0-100.0); MEAN CORPUSCULAR HEMOGLOBIN 30 pg (27.0-31.0); MEAN CORPUSCULAR HGB CONC 34 g/dl (33.0-37.0); MEAN PLATELET VOLUME 10.4 fl (7.4-10.4); MONO # 0.4 (0.1-0.6); MONO % 3.8 % (1.7-9.3); PLATELET COUNT 221 K/mm3 (130-400); RED BLOOD COUNT 3.38 M/mm3 (4.10-5.30); REDCELL DISTRIBUTION WIDTH-CV 13.3 % (11.5-14.5)
[2021-01-23 13:39] LABS: HEMATOCRIT 29.7 % (37.0-47.0)
[2021-01-23 13:48] LABS: CALCIUM 8.9 mg/dL (8.4-10.2); CREATININE, serum 9.26 (0.52-1.25); PHOSPHOROUS 5.7 mg/dL (2.5-4.5); POTASSIUM 4.9 mmol/L (3.4-5.0)
--- NOTE | 2021-01-23 15:09 | NUR ---
PATIENT TOLERATED HD TX WITH 200 ML FLUID REMOVAL. NEXT PLANNED HD TX ON Friday01/26/21 @ [facility] @ 1827.
[2021-01-23 15:39] VITALS: BP 154/66; PULSE 52; TEMP 98.6
--- NOTE | 2021-01-23 17:46 | NUR ---
Pt in dialysis most of the day. Up Tavo in room. Heating pad used for left knee pain. No needs at this time. Call manzano within reach.
--- NOTE | 2021-01-23 19:00 | NUR ---
RECEIVED CHANGE OF SHIFT REPORT FROM DAY SHIFT NURSE. PATIENT UP INDEPENDENTLY IN ROOM WITH NO REPORTED COMPLAINTS OR NEEDS. REPORTS FEELING CONSTIPATED WITH PAIN TO RECTUM, REFUSED OFFER OF TYLENOL OR ULTRAM AT THIS TIME BUT AGREED TO ICE PACK TO AREA OF DISCOMFORT AND SUPP WHEN PAIN SUBSIDES LATER. AMBULATING WITH WALKER WITH NO PROBLEMS BUT GAIT IS SLOW
--- NOTE | 2021-01-23 22:00 | NUR ---
PATIENT REFUSED SUPP AT THIS TIME, REPORTED WAS ABLE TO PASS HARD STOOL AFTER USING ICE PACK TO RECTUM. DENIED ANY OTHER NEEDS. SEE MAR FOR MEDS GIVEN.
--- NOTE | 2021-01-24 02:00 | NUR ---
PATIENT COMPLAINS OF "STOMACH HURTING" AGREES TO TAKE ONLY ZOFRAN AND USE HEATING PAD TO ABD. SEE MAR FOR MED GIVEN. REFUSED OFFER OF TYLENOL AT THIS TIME. UP TO BATHROOM AD SANDEEP WITH NO REPORTED PROBLEMS OR COMPLAINTS/CONCERNS.
[2021-01-24 04:53] VITALS: BP 126/50; PULSE 50; TEMP 97.8
--- NOTE | 2021-01-24 06:39 | NUR ---
Report received from CALIXTO Fisher. Patient is sleeping in bed. Call light and bedside table are within reach. Will continue to monitor throughout shift.
--- NOTE | 2021-01-24 07:28 | NUR ---
CHANGE OF SHIFT REPORT GIVEN TO DAY SHIFT NURSEDERIAN RN
--- NOTE | 2021-01-24 08:21 | NUR ---
*late entry, 01/23/21* Fatemeh, at [facility], reports they do not have ST or enough OT to take the patient on this at this time. SW followed up with [facility]. [facility] reports that they are able to accept the patient and have all the disciplines. The receptionist nurse reports that they will reach out to the patient's son, Yosi. SW attempted to contact and update Yosi. SW left him a voicemail.
[2021-01-24] MEDS ORDERED: ULTRAM 50MG TAB50 MG PO (12:37)
--- NOTE | 2021-01-24 13:13 | NUR ---
The patient is to discharge back home today, 01/24, with home health services for alf/PT/OT/ST from [facility]. BENSON notified and faxed d/c orders to Catracho at [facility]. BENSON met with the patient and presented and read the IM form outloud to her. The patient verbalized understanding and gave SW approval to sign the form on her behalf. BENSON provided her with a copy. BENSON attempted to contact and update the patient's son, Yosi. BENSON left him a voicemail. BENSON contacted and updated Yosi's , Pennie. Pennie was in agreement to the plan. No additional needs at this time.
--- NOTE | 2021-01-24 16:30 | NUR ---
Patient health summary, discharge summary, and home meds printed and reviewed with patient. Stressed the importance of follow up appointments. Reviewed medications. Belongings gathered by CALIXTO Ames to include cell phone and bellows charger assembler. Patient transported via wheelchair and seatbelted for ride home. Patient denied questions.
--- NOTE | 2021-01-25 13:36 | NUR ---
Discharge QIM scores were reviewed by the team. Code of 6 chosen for toilet hygiene was determined by team discussion to be the most usual performance for this patient during the assessment period. Code of 6 chosen for toileting transfers was determined by team discussion to be the most usual performance for this patient during the assessment period. Code of 6 chosen for upper body dressing was determined by team discussion to be the most usual performance for this patient during the assessment period. Code of 6 chosen for lower body dressing was determined by team discussion to be the most usual performance for this patient during the assessment period. Code of 6 chosen for putting on/taking off footwear was determined by team discussion to be the most usual performance for this patient during the assessment period. Code of 6 for sit to stand was determined by team discussion to be the most usual performance for this patient during the assessment period. Code of 6 chosen for walk 10 feet was determined by team discussion to be the most usual performance for this patient during the assessment period. Code of 6 chosen for walk 50 feet w/ 2 turns was determined by team discussion to be the most usual performance for this patient during the assessment period. Code of 6 chosen for walk 150 feet was determined by team discussion to be the most usual performance for this patient during the assessment period.--PD Kathi
== END 2021-01-24 16:30 | disposition home health service (06) | DRG 553 ==
PROVIDERS: Internal Medicine Nephrology; Nurse Practitioner; Orthopaedic Surgery; Physician Assistant; ADMIT Internal Medicine
DX: M25.061 Hemarthrosis, right knee (principal); N18.6 End stage renal disease; I12.0 Hypertensive chronic kidney disease with stage 5 chronic kidney disease or end stage renal disease; I69.354 Hemiplegia and hemiparesis following cerebral infarction affecting left non-dominant side; I16.0 Hypertensive urgency; E87.6 Hypokalemia; R26.89 Other abnormalities of gait and mobility; D63.1 Anemia in chronic kidney disease; Z99.2 Dependence on renal dialysis; Z60.2 Problems related to living alone; Z86.79 Personal history of other diseases of the circulatory system; Z73.6 Limitation of activities due to disability; Z79.899 Other long term (current) drug therapy; Z79.891 Long term (current) use of opiate analgesic; Z88.8 Allergy status to other drugs, medicaments and biological substances; Z88.1 Allergy status to other antibiotic agents; Z91.040 Latex allergy status; E83.39 Other disorders of phosphorus metabolism
CPT/HCPCS: 99222-AI; 99231-AI; 99232-AI; 99239; J1644; J7030; Q5105

== ENCOUNTER 2021-04-27 07:01 | Emergency (ER) | payer MEDICARE ==
[~2021-04-27] VITALS: Ht 152.4 cm; Wt 53.0 kg
[2021-04-27 07:13] VITALS: PULSE 73; TEMP 98.1
[2021-04-27 07:32] LABS: BASO # 0.1 K/mm3 (0.0-0.2); BASO % 0.6 % (0.0-2.0); EOS # 0.2 K/mm3 (0.0-0.7); EOS % 2.6 % (0.0-4.0); GRAN # 6.2 K/mm3 (1.4-6.5); HEMATOCRIT 32.5 % (37.0-47.0); HEMOGLOBIN 10.8 g/dl (12.5-16.0); LYMPH # 1.5 K/mm3 (1.2-3.4); LYMPH % 17.4 % (20.0-51.0); MEAN CELL VOLUME 90 fl (80.0-100.0); MEAN CORPUSCULAR HEMOGLOBIN 30 pg (27-31); MEAN CORPUSCULAR HGB CONC 33 g/dl (33.0-37.0); MEAN PLATELET VOLUME 10.5 fl (7.4-10.4); MONO # 0.5 K/mm3 (0.1-0.6); MONO % 6.2 % (1.7-9.3); PLATELET COUNT 167 K/mm3 (130-400); RED BLOOD COUNT 3.62 M/mm3 (4.10-5.30)
[2021-04-27 08:05] LABS: ALBUMIN 4.1 gm/dL (3.4-4.8); BILIRUBIN,TOTAL 0.6 mg/dL (0.2-1.2); C-REACTIVE PROTEIN 0.07 mg/dL (0.00-0.50); CALCIUM 9.1 mg/dL (8.4-10.2); CREATININE, serum 8.91 mg/dL (0.57-1.11); POTASSIUM 4.3 mmol/L (3.5-4.5); TOTAL PROTEIN 7.4 gm/dL (6.2-8.1)
[2021-04-27] MEDS ORDERED: ZOFRAN ODT4 MG PO (09:10)
[2021-04-27 09:23] VITALS: BP 180/98
== END 2021-04-27 09:25 | disposition home or self-care (01) ==
LOC: COL.ER 07:01
PROVIDERS: Family Medicine
DX: R11.2 Nausea with vomiting, unspecified (principal); I12.9 Hypertensive chronic kidney disease with stage 1 through stage 4 chronic kidney disease, or unspecified chronic kidney disease; N18.9 Chronic kidney disease, unspecified; Z99.2 Dependence on renal dialysis; Z79.899 Other long term (current) drug therapy
CPT/HCPCS: J2405; J7030

== ENCOUNTER 2021-05-06 19:40 | Emergency (ER) | payer MEDICARE ==
[~2021-05-06] VITALS: Ht 152.4 cm; Wt 54.5 kg
[~2021-05-06 19:40] MED LIST changes: +ZOFRAN ODT4 MG PO
[2021-05-06 20:22] LABS: ALBUMIN 3.8 gm/dL (3.4-4.8); BILIRUBIN,TOTAL 0.9 mg/dL (0.2-1.2); CALCIUM 8.5 mg/dL (8.4-10.2); CREATININE, serum 9.72 mg/dL (0.57-1.11); POTASSIUM 4.8 mmol/L (3.5-4.5); TOTAL PROTEIN 7.2 gm/dL (6.2-8.1)
[2021-05-06 20:28] LABS: TROPONIN-I 0.015 ng/mL (0.00-0.033)
[2021-05-06 20:39] LABS: BASO % 0.2 % (0.0-2.0); EOS # 0.3 K/mm3 (0.0-0.7); EOS % 3.3 % (0.0-4.0); GRAN % 68.8 % (42.2-75.2); HEMOGLOBIN 10.3 g/dl (12.5-16.0); LYMPH # 1.1 K/mm3 (1.2-3.4); LYMPH % 12.8 % (20.0-51.0); MEAN CELL VOLUME 89 fl (80.0-100.0); MEAN CORPUSCULAR HEMOGLOBIN 30 pg (27-31); MEAN CORPUSCULAR HGB CONC 34 g/dl (33.0-37.0); MEAN PLATELET VOLUME 10.9 fl (7.4-10.4); MONO # 1.3 K/mm3 (0.1-0.6); MONO % 14.6 % (1.7-9.3); PLATELET COUNT 128 K/mm3 (130-400); REDCELL DISTRIBUTION WIDTH-CV 13.2 % (11.5-14.5)
[2021-05-06 20:40] LABS: HEMATOCRIT 30.4 % (37.0-47.0)
[2021-05-06 21:01] VITALS: BP 178/87; PULSE 77; TEMP 98.4
== END 2021-05-06 21:01 | disposition home or self-care (01) ==
LOC: COL.ER 19:40
PROVIDERS: Emergency Medicine
DX: R53.81 Other malaise (principal); E87.5 Hyperkalemia; I12.0 Hypertensive chronic kidney disease with stage 5 chronic kidney disease or end stage renal disease; N18.6 End stage renal disease; D63.1 Anemia in chronic kidney disease; F41.9 Anxiety disorder, unspecified; Z86.73 Personal history of transient ischemic attack (TIA), and cerebral infarction without residual deficits; Z99.2 Dependence on renal dialysis; Z20.822 Contact with and (suspected) exposure to COVID-19; Z79.899 Other long term (current) drug therapy

== ENCOUNTER 2021-06-11 14:20 | Observation (INO) | payer MEDICARE ==
[~2021-06-11] VITALS: Wt 60.5 kg
[2021-06-11 14:57] LABS: BASO % 0.3 % (0.0-2.0); EOS # 0.1 K/mm3 (0.0-0.7); EOS % 1.4 % (0.0-4.0); GRAN # 5.5 K/mm3 (1.4-6.5); GRAN % 76.7 % (42.2-75.2); LYMPH # 1.1 K/mm3 (1.2-3.4); LYMPH % 14.9 % (20.0-51.0); MEAN CELL VOLUME 90 fl (80.0-100.0); MEAN CORPUSCULAR HGB CONC 33 g/dl (33.0-37.0); MEAN PLATELET VOLUME 11.8 fl (7.4-10.4); MONO # 0.5 K/mm3 (0.1-0.6); MONO % 6.3 % (1.7-9.3); PLATELET COUNT 153 K/mm3 (130-400); RED BLOOD COUNT 3.01 M/mm3 (4.10-5.30); REDCELL DISTRIBUTION WIDTH-CV 13.7 % (11.5-14.5)
[2021-06-11 14:58] LABS: HEMOGLOBIN 8.9 g/dl (12.5-16.0); MEAN CORPUSCULAR HEMOGLOBIN 30 pg (27-31)
[2021-06-11 15:19] LABS: ALBUMIN 3.4 gm/dL (3.4-4.8); BILIRUBIN,TOTAL 0.5 mg/dL (0.2-1.2); CALCIUM 8.2 mg/dL (8.4-10.2); CREATININE, serum 9.34 mg/dL (0.57-1.11); TOTAL PROTEIN 6.7 gm/dL (6.2-8.1)
[2021-06-11 15:31] LABS: POTASSIUM 5.8 mmol/L (3.5-4.5)
[2021-06-11 15:32] LABS: TROPONIN-I 0.052 ng/mL (0.00-0.033)
[2021-06-11 17:31] LABS: COLLECTION METHOD CATHETER
[2021-06-11 17:37] LABS: PH 6 (5-8); SQUAMOUS EPITHELIAL 0-2 /hpf (0-10); URINE APPEARANCE Clear (CLEAR/HAZY); URINE BACTERIA None Seen /hpf (NONE SEEN); URINE BILIRUBIN Negative (NEGATIVE); URINE BLOOD 1+ (NEGATIVE); URINE COLOR Straw (YELLOW); URINE GLUCOSE 1+ (NEGATIVE); URINE KETONE Negative (NEGATIVE); URINE LEUKOCYTE ESTERASE 1+ (NEGATIVE); URINE NITRATE Negative (NEGATIVE); URINE PROTEIN(semi-quant) 2+ (NEGATIVE); URINE RBC 0-2 /hpf (0-2); URINE UROBILINOGEN Negative (NEGATIVE)
--- NOTE | 2021-06-11 20:03 | NUR ---
ARRIVED TO FLOOR VIA STRETCHER, AWAKE, ALERT, ORIENTED X 3, VENETIE, ANSWERS QUESTIONS READILY, STATES "I HAVE NOT BEEN TO DIALYSIS IN 4 WEEKS" PATIENT EXPLAINS THAT SHE FEELS BETTER WITHOUT DIALYSIS, NO S/S OF ACUTE DISTRESS NOTED, ORIENTED TO ROOM
[2021-06-11 20:39] VITALS: BP 184/75; PULSE 77; TEMP 98.2
[2021-06-12 00:10] VITALS: BP 161/64; PULSE 65; TEMP 98.3
[2021-06-12 04:01] VITALS: BP 136/59; PULSE 72; TEMP 98
[2021-06-12 06:48] LABS: BASO # 0.1 K/mm3 (0.0-0.2); BASO % 0.6 % (0.0-2.0); EOS # 0.3 K/mm3 (0.0-0.7); GRAN # 5.3 K/mm3 (1.4-6.5); GRAN % 68.4 % (42.2-75.2); LYMPH # 1.5 K/mm3 (1.2-3.4); MEAN CELL VOLUME 90 fl (80.0-100.0); MEAN CORPUSCULAR HGB CONC 33 g/dl (33.0-37.0); MEAN PLATELET VOLUME 11.7 fl (7.4-10.4); MONO # 0.5 K/mm3 (0.1-0.6); MONO % 6.7 % (1.7-9.3); PLATELET COUNT 153 K/mm3 (130-400); REDCELL DISTRIBUTION WIDTH-CV 13.7 % (11.5-14.5)
[2021-06-12 06:52] LABS: CALCIUM 8.3 mg/dL (8.4-10.2); CREATININE, serum 9.05 mg/dL (0.57-1.11); POTASSIUM 5.2 mmol/L (3.5-4.5)
[2021-06-12 06:59] LABS: HEMATOCRIT 26.1 % (37.0-47.0); HEMOGLOBIN 8.6 g/dl (12.5-16.0); MEAN CORPUSCULAR HEMOGLOBIN 30 pg (27-31)
[2021-06-12 07:22] VITALS: BP 157/73; PULSE 69; TEMP 97.8
--- NOTE | 2021-06-12 08:00 | NUR ---
Patient laying in bed A&Ox4. VSS. IV CDI. Denies pain and discomfort. Fistula CDI. No further needs expressed. Call light within reach. Bed alarm on
--- NOTE | 2021-06-12 08:42 | NUR ---
Patient taken to dialysis by wheelchair. No further needs expressed.
[2021-06-12 12:31] VITALS: BP 160/83; PULSE 66; TEMP 98
--- NOTE | 2021-06-12 12:31 | NUR ---
Patient back from dialysis into room 354. A&Ox4. VSS. IV CDI. Tolerated dialysis. denies pain and discomfort. Nursing staff ordered lunch for the patient. No further needs expressed. Call light within reach
--- NOTE | 2021-06-12 12:32 | NUR ---
PATIENT TOLERATED HER HD TX WITH 500 ML OF FLUID REMOVED. NEXT PLANNED TX ON Friday06/14/21 @ 0800.
[2021-06-12 16:47] VITALS: BP 187/86; PULSE 73; TEMP 98.1
--- NOTE | 2021-06-12 16:47 | NUR ---
Silk Screen Cutter collaborated with Rand, Nurse Practitioner who advised patient's chair time was changed to MWF at 1315 at [facility]. BENSON met with patient to discuss discharge plan. Patient lives alone in [place] and advised she lives in a rental apartment. Patient states Dr. Pizarro is her primary care physician and reports her son, Yosi picks up her medications from [facility]. Patient has a walker and she reports independence with ADLS. Patient's son, Yosi is patient's DPOA-HC and copy is in EMR. Patient states she would like to return home at time of discharge. BENSON spoke with patient's son, Yosi to discuss discharge plan. BENSON advised Yosi that patient is here under observation status meaning that SNF placement would be private pay. Yosi advised patient does not have the funds for this. Yosi also advised that patient does qualify for Medicaid as she "gifted" Yosi her home about two years ago. BENSON advised that plan for patient will likely be home with home health services and Yosi verbalized understanding. Yosi stated that he believes patient had [facility] at one point. BENSON contacted Ashley at [facility] who advised they do not currently provide patient services. BENSON will follow up with patient on preference for home health agency. Discharge Plan: Home with Home Health
--- NOTE | 2021-06-12 17:37 | NUR ---
Patient had an uneventful day. Spent the morning in dialysis and tolerated well. A&Ox3. VSS, BP hypertensive, doctor aware. IV CDI. Fistula CDI. Denies pain and discomfort. No further needs expressed. Nursing staff assisting with positioning patient for comfort and for meals. Call light within reach. Bed alarm on
[2021-06-12 21:21] VITALS: BP 138/50; PULSE 57; TEMP 98.4
[2021-06-13 00:40] VITALS: BP 148/62; PULSE 60; TEMP 98.1
[2021-06-13 04:30] VITALS: BP 142/64; PULSE 83; TEMP 97.6
[2021-06-13 06:51] LABS: BASO % 0.2 % (0.0-2.0); EOS # 0.3 K/mm3 (0.0-0.7); EOS % 3.6 % (0.0-4.0); GRAN # 5.7 K/mm3 (1.4-6.5); GRAN % 65.8 % (42.2-75.2); LYMPH # 1.9 K/mm3 (1.2-3.4); LYMPH % 22.3 % (20.0-51.0); MEAN CELL VOLUME 88 fl (80.0-100.0); MEAN CORPUSCULAR HGB CONC 35 g/dl (33.0-37.0); MEAN PLATELET VOLUME 11.1 fl (7.4-10.4); MONO # 0.7 K/mm3 (0.1-0.6); MONO % 7.9 % (1.7-9.3); PLATELET COUNT 164 K/mm3 (130-400); RED BLOOD COUNT 3.04 M/mm3 (4.10-5.30); REDCELL DISTRIBUTION WIDTH-CV 13.2 % (11.5-14.5)
[2021-06-13 06:54] LABS: HEMATOCRIT 26.6 % (37.0-47.0); HEMOGLOBIN 9.2 g/dl (12.5-16.0); MEAN CORPUSCULAR HEMOGLOBIN 30 pg (27-31)
[2021-06-13 06:57] LABS: CALCIUM 8.3 mg/dL (8.4-10.2); CREATININE, serum 5.05 mg/dL (0.57-1.11); POTASSIUM 4.2 mmol/L (3.5-4.5)
--- NOTE | 2021-06-13 08:00 | NUR ---
Shift assessment complete. Pt resting in bed. A&Ox4. Vitals stable. Heart RRR. Lungs CTA. Right UA fistula w/palpable thrill and audible bruit. Pt denies needs or concerns this time. Continuing to monitor.
[2021-06-13 09:20] VITALS: BP 150/68; PULSE 61; TEMP 97.8
[2021-06-13 12:00] VITALS: BP 148/77; PULSE 77; TEMP 98.1
--- NOTE | 2021-06-13 12:59 | NUR ---
Pt taken to room 321 for dialysis at this time.
--- NOTE | 2021-06-13 15:00 | NUR ---
PATIENT TOLERATED HER HD TX WITH 500 ML OF FLUID REMOVED. NEXT PLANNED HD TX ON Friday06/15/21 @ [facility] IN [place].
[2021-06-13 15:32] VITALS: BP 147/73; PULSE 63; TEMP 97.7
--- NOTE | 2021-06-13 16:29 | NUR ---
Pump Service Supervisor met with patient to discuss Home Health services. Patient is agreeable to use [facility], who she has used in the past. BENSON faxed referral and orders to Cindy at [facility] who advised they will accept. Cindy did report that previously there have been difficulties with patient allowing services into the home, but that they will make an effort to start services. BENSON contacted Yosi and provided update. Yosi advised he will be available this evening to take patient home.
--- NOTE | 2021-06-13 16:40 | NUR ---
Discharge instructions discussed w/pt and all questions answered. Went to remove pt's IV and found that pt had pulled it out. Site CDI, catheter tip intact. Pt reports she has called son Yosi to come pick her up and he will call when he arrives.
--- NOTE | 2021-06-13 17:30 | NUR ---
Pt's son has yet to arrive. Checked w/pt who reports she is unable to get ahold of him. This RN called pt's son Yosi who reports he is unable to hand picker pt but he will call an [facility] to pick her up and take her home.
--- NOTE | 2021-06-13 17:51 | NUR ---
Pt notified of UBER's arrival and escorted out via wheelchair w/all belongings.
== END 2021-06-13 17:50 | disposition home health service (06) ==
LOC: COL.ER 14:20 → MEDICAL 17:48
PROVIDERS: Emergency Medicine; Registered Nurse; ADMIT Internal Medicine Nephrology
DX: I12.0 Hypertensive chronic kidney disease with stage 5 chronic kidney disease or end stage renal disease (principal); N18.6 End stage renal disease; D63.1 Anemia in chronic kidney disease; Z99.2 Dependence on renal dialysis; Z91.15 Patient's noncompliance with renal dialysis; I69.351 Hemiplegia and hemiparesis following cerebral infarction affecting right dominant side; E87.5 Hyperkalemia; E83.39 Other disorders of phosphorus metabolism; Z20.822 Contact with and (suspected) exposure to COVID-19; F03.90 Unspecified dementia, unspecified severity, without behavioral disturbance, psychotic disturbance, mood disturbance, and anxiety; E87.2 Acidosis; R79.89 Other specified abnormal findings of blood chemistry; Z79.899 Other long term (current) drug therapy
CPT/HCPCS: G0378; J1644; J7030

== ENCOUNTER 2021-07-05 15:26 | Emergency (ER) | payer MEDICARE ==
[~2021-07-05] VITALS: Ht 152.4 cm; Wt 45.5 kg
[2021-07-05 15:30] VITALS: TEMP 98
[2021-07-05 16:23] LABS: BASO % 0.5 % (0.0-2.0); EOS # 0.2 K/mm3 (0.0-0.7); EOS % 2.6 % (0.0-4.0); GRAN # 4.4 K/mm3 (1.4-6.5); GRAN % 76.7 % (42.2-75.2); HEMOGLOBIN 10.9 g/dl (12.5-16.0); LYMPH # 0.8 K/mm3 (1.2-3.4); LYMPH % 13.5 % (20.0-51.0); MEAN CELL VOLUME 89 fl (80.0-100.0); MEAN CORPUSCULAR HEMOGLOBIN 30 pg (27-31); MEAN CORPUSCULAR HGB CONC 33 g/dl (33.0-37.0); MEAN PLATELET VOLUME 11.7 fl (7.4-10.4); MONO # 0.4 K/mm3 (0.1-0.6); MONO % 6.3 % (1.7-9.3); PLATELET COUNT 130 K/mm3 (130-400); RED BLOOD COUNT 3.67 M/mm3 (4.10-5.30); REDCELL DISTRIBUTION WIDTH-CV 12.8 % (11.5-14.5)
[2021-07-05 16:24] LABS: HEMATOCRIT 32.8 % (37.0-47.0)
[2021-07-05 16:44] LABS: ALBUMIN 3.9 gm/dL (3.4-4.8); BILIRUBIN,TOTAL 0.8 mg/dL (0.2-1.2); CALCIUM 9.5 mg/dL (8.4-10.2); CREATININE, serum 7.13 mg/dL (0.57-1.11); POTASSIUM 4.3 mmol/L (3.5-4.5); TOTAL PROTEIN 7.2 gm/dL (6.2-8.1)
[2021-07-05 16:50] LABS: TROPONIN-I 0.028 ng/mL (0.00-0.033)
[2021-07-05 17:18] LABS: COLLECTION METHOD CLEAN CATCH
[2021-07-05 17:24] LABS: PH 9 (5-8); SQUAMOUS EPITHELIAL None Seen /hpf (0-10); URINE APPEARANCE Clear (CLEAR/HAZY); URINE BACTERIA None Seen /hpf (NONE SEEN); URINE BILIRUBIN Negative (NEGATIVE); URINE BLOOD Negative (NEGATIVE); URINE COLOR Yellow (YELLOW); URINE GLUCOSE 2+ (NEGATIVE); URINE KETONE Negative (NEGATIVE); URINE LEUKOCYTE ESTERASE Trace (NEGATIVE); URINE NITRATE Negative (NEGATIVE); URINE PROTEIN(semi-quant) 2+ (NEGATIVE); URINE RBC 0-2 /hpf (0-2); URINE UROBILINOGEN Negative (NEGATIVE)
[2021-07-05 20:57] VITALS: BP 149/66; PULSE 74
== END 2021-07-05 19:08 | disposition home or self-care (01) ==
LOC: COL.ER 15:26
PROVIDERS: Nurse Practitioner Primary Care
DX: I12.0 Hypertensive chronic kidney disease with stage 5 chronic kidney disease or end stage renal disease (principal); N18.6 End stage renal disease; R19.7 Diarrhea, unspecified; D63.1 Anemia in chronic kidney disease; Z99.2 Dependence on renal dialysis; Z91.040 Latex allergy status
CPT/HCPCS: J2405